=== PATIENT | male | born 1990 | race Caucasian/White ===

== ENCOUNTER 2020-08-16 15:43 | Outpatient (REF) | payer MEDICAID, SELFPAY ==
[2020-08-16 15:48] LABS: HCT 45.3 % (40.0-50.0); HGB 15.6 g/dL (13.5-17.5); MCH 32.6 pg (27.0-33.0); MCHC 34.4 % (32.0-36.0); MCV 94.6 fL (80-95); MPV 11.6 fL (8.0-11.0); Platelet Count 371 10^3/uL (130-400); RBC 4.79 10^6/uL (4.36-5.78); RDW 14.2 % (11.8-14.1); RDW-SD 49.9 fL; WBC 11.68 10^3/uL (4.4-10.8)
[2020-08-16 16:06] LABS: ALT 17 U/L (16-63); AST 18 U/L (15-37); Albumin 4.1 g/dL (3.4-5.0); Alkaline Phosphatase 76 U/L (46-116); Anion Gap 6.8 mmol/L (3-11); BUN 10 mg/dL (7-18); Bilirubin, Total 0.6 mg/dL (0.2-1.0); CO2 29.2 mmol/L (21.0-32.0); CREATININE 0.8 mg/dL (0.70-1.30); Calcium 9.2 mg/dL (8.5-10.1); Chloride 107 mmol/L (98-107); Glucose 92 mg/dL (74-106); Potassium 4.8 mmol/L (3.5-5.1); Sodium 143 mmol/L (136-145); TSH (W/Ref FT4) 1.89 uIU/mL (0.36-3.74); Total Protein 7.4 g/dL (6.4-8.2)
[2020-08-17 10:13] LABS: HIV-1/2 Ag & Ab Screen Negative (Negative)
[2020-08-17 10:24] LABS: Hepatitis C Ab w Rflx HCV PCR Negative (Negative)
[2020-08-18 02:51] LABS: Vitamin D 25 Total 26.7 ng/mL (30-100)
== END 2020-08-16 15:44 | disposition home or self-care (01) ==
LOC: NCHCN 15:43
PROVIDERS: Visit Provider Family Medicine
DX: R63.4 Abnormal weight loss (principal); Z79.899 Other long term (current) drug therapy; Z11.4 Encounter for screening for human immunodeficiency virus [HIV]; Z11.59 Encounter for screening for other viral diseases
CPT/HCPCS: 80053; 82306; 85027; 86803; 87389; 84443

== ENCOUNTER 2020-08-24 00:51 | Emergency (ER) | payer MEDICAID, SELFPAY ==
[2020-08-24 00:53] VITALS: BP 103/66; PULSE 86; RESP 16; TEMP 36.9; O2SAT 96
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
[2020-08-24] MEDS: LORazepam 1 MG TAB PO ×2 (01:37→12:11)
[2020-08-24 05:49] VITALS: BP 108/75; PULSE 79; RESP 14; TEMP 36.9; O2SAT 98
--- NOTE | 2020-08-24 06:07 | NUR.NOTE ---
Nursing Note:[facility] contacted and sts can pickle sorter patient and bring back to facility at 8am. pt in nad.
[2020-08-24] MEDS: LORazepam 0.5 MG TAB PO ×2 (07:53→11:35)
--- NOTE | 2020-08-24 12:12 | NUR.NOTE ---
pt was discharged and waiting for a ride to bring him to [facility]. the ride never showed up. the nurse from [facility] called to say that pt was suicidal yesterday while she was there and that the farm could not handle a suicidal pt. care mgmt and [facility]-Gerardo here here to try to figure out where pt will go. in the last hour-pt very anxious-wants something to calm him because he does not know where he will be going-given ativan-0.5mg and later ativan 1mg. Pt was yelling out that he needed medication.Nursing Note:
[2020-08-24] MEDS: Haloperidol 5 MG TAB PO ×2 (12:36→17:11)
--- NOTE | 2020-08-24 16:52 | CMPROGNOTE_ITS ---
- If Service Date Differs Date of service: 08/24/20 Time of Service: 16:52 Care Management Progress Note CM huddled with Asia and Gerardo of [facility], Nursing Welfare Investigator Kelly as well as multiple ED staff and Dr. Hurley. Upon CM's arrival, Asia reported the group was in agreement that Nigel met criteria to stay. Dr. Hurley stated, what other option do we have?, our hands are tied. JAME had previously spoken with all members of team multiple times throughout the day and was told by Gerardo that Nigel did not meet criteria as he was stable on his medications per his provider and did not have HI/SI. Gerardo reports this remains accurate at this time. Per reports from [facility] stated by OREN Brannon there are some questions central to his current med rec and if it is accurate at this time. Due to [facility]'s unwillingness to accept Nigel back, recommendations were made to start him on Zyprexa which Dr. Hurley was willing to do, as Nigel has voluntarily taken haldol (PO 5mg@1236) due to feeling anxious. Per reports, he is willing to go to inpatient psych, though this morning Gerardo re ported he didn't feel it would be helpful. Due to lack of SI/HI and presentation of chronic issues, no safety plan or CPSO will be required at this time, recommendation stands for Nigel to remain in the Emergency Room as he does not meet criteria for Inpatient psychiatric stabilization and his history of reported behaviors and TBI put him at his risk for impulsivity; better managed from the Emergency Room. Amna report placement at [facility] will be sought. - MH Services (Omit if N/A) Current MH Services: Other (TBI-chronic) - Status Status: Interim (Does not meet criteria.) - Reason for Wait Reason for Wait: Assessment/Screening, Outpatient Resources, Other (lack of communication, no disposition as TBI housing refused to take him back. )
[2020-08-24] MEDS: LORazepam 1 MG TAB 2 MG PO (17:11)
[2020-08-24 17:45] LABS: Source Nasal/Nares
[2020-08-24 17:52] VITALS: BP 106/65; PULSE 98; RESP 15; TEMP 36.8; O2SAT 94
[2020-08-24 17:58] LABS: Abs Immature Grans 0.06 10^3/uL (0.0-0.06); Absolute Eosinophil Count 0.49 10^3/uL (0.0-0.7); Absolute Lymphocyte Count 4.91 10^3/uL (1.2-3.4); Absolute Monocyte Count 1.49 10^3/uL (0.1-0.8); Basophils % 1.1; HCT 45.7 % (40.0-50.0); HGB 15.5 g/dL (13.5-17.5); Immature Grans % 0.5; Lymphocytes % 40.2; MCH 32.2 pg (27.0-33.0); MCHC 33.9 % (32.0-36.0); MPV 10.7 fL (8.0-11.0); Monocytes % 12.2; Nucleated RBC 0 %; Platelet Count 370 10^3/uL (130-400); RBC 4.81 10^6/uL (4.36-5.78); RDW 14.2 % (11.8-14.1); RDW-SD 50.4 fL; WBC 12.21 10^3/uL (4.4-10.8)
[2020-08-24 18:00] LABS: ALT 19 U/L (16-63); AST 17 U/L (15-37); Albumin 3.8 g/dL (3.4-5.0); Alkaline Phosphatase 72 U/L (46-116); Anion Gap 7.9 mmol/L (3-11); BUN 10 mg/dL (7-18); Bilirubin, Total 0.7 mg/dL (0.2-1.0); CO2 29.1 mmol/L (21.0-32.0); CREATININE 0.9 mg/dL (0.70-1.30); Calcium 8.9 mg/dL (8.5-10.1); Chloride 106 mmol/L (98-107); ETHANOL BLOOD 4.1 mg/dL (<3); Glucose 87 mg/dL (74-106); Potassium 4.3 mmol/L (3.5-5.1); Sodium 143 mmol/L (136-145); Total Protein 7.4 g/dL (6.4-8.2)
[2020-08-24 18:13] LABS: Absolute Basophil Count 0.13 10^3/uL (0.0-0.2); Absolute Neutrophil Count 5.13 10^3/uL (1.2-6.7)
[2020-08-24] MEDS: Divalproex Sodium 500 MG TAB.ER.24H 1000 MG PO (18:16)
[2020-08-24] MEDS: OLANZapine 5 MG TAB PO (18:16)
[2020-08-24 18:19] LABS: Diff Comment Diff Reviewed; RBC Morphology Normal
[2020-08-24 18:30] LABS: *AMPHETAMINES SCREEN URINE Negative (Negative); *BARBITURATES SCREEN URINE Negative (Negative); *BENZODIAZEPINES SCREEN URINE Negative (Negative); Cannabinoids THC Positive (Negative); Cocaine Screen,Urine Negative (Negative); METHADONE URINE SCREEN Negative (Negative); OPIATES URINE SCREEN Negative (Negative); Tricyclic Antidepressants Negative (Negative)
[2020-08-24 20:53] LABS: COVID-19 PCR Negative (Negative)
[2020-08-25] MEDS: OLANZapine 5 MG TAB PO ×3 (08:35→21:18)
[2020-08-25] MEDS: Divalproex Sodium 500 MG TAB.ER.24H 1000 MG PO (08:35)
--- NOTE | 2020-08-25 08:55 | PDOC.MHCN_ITS ---
Date of service: 08/24/20 Time of Service: 10:30 Mental Health Crisis Note Presenting Issue How did you arrive at the ED and why did you come: Client presented to [facility] ER via ambulance from [facility]. As reported by Pema ([facility] healthcare administrator); client was dysregulated, impulsive and made threats to staff. Client became a resident at [facility] yesterday because he has a severe TBI. Precipitating Factors Client denied SI/HI at this time Disposition BEHAVIOR: Client presented as anxious with periods of irritable and hyperactive behavior especially when he appeared overwhelmed with information or unable to recall information. Client was able to calm himself down with the help of his therapy dog. EYE CONTACT: Client maintained minimal eye contact MOOD: Client presented with dysphoric mood and at times, agitated mood. AFFECT: Client presented with labile affect APPETITE: Client reported he had no appetite for food. SLEEP(trouble falling/staying asleep: Client reported difficulty falling and/or staying asleep especially when he is alone or isolated. Plan Client is on voluntary status and will await placement at [facility] for in-patient treatment for med adjustment and med regulation. Client will need to be reassessed if and when he decides to be discharged before getting placed. Alternatives to hospitalization were not explored at this time based on client's needs and p Signature Clinician's Name/Title: Rebeca Shepherd / KEVIN clinician
--- NOTE | 2020-08-25 08:55 | PDOC.CMSAFED ---
- If Service Date Differs Date of service: 08/25/20 Time of Service: 08:55 Care Management Safety Plan Status: Voluntary - Reason for Wait Reason for Wait: Inpatient Admission Chief Complaint: Nigel presented in the ED yesterday due to anxiety and adjustment disorder. He recently moved to [facility], but was only there for approximately 24 hours before being sent to the ED for mood dysregulation. Nigel, who has a TBI, is described as impulsive and anxious. Today, Nigel denies suicidal or homicidal ideation, intent or plan. He is slightly agitated when CM comes to meet with him but he is able to regain his composure after a few minutes. CM will continue to follow. VOLUNTARY FOR INPATIENT PSYCHIATRIC STABILIZATION. Patient is appropriate in all interactions since arriving at [facility]; Pt has demonstrated appropriate coping and communication skills, has articulated his or her needs and concerns and is fully engaged during staff interactions. Safety plan has been established with patient, and care team, to adhere to patient goals, identify restrictions based on behavioral status, address nutrition, and determine allowed personal belongings, tools for hygiene and personal care. Determine level of activity including ambulation, level of supervision, visitors, and determine privileges based on behaviors and level of engagement by pt. Referrals have been sent to [facility], [facility], and [facility] for review. Nigel has a certified therapy dog (see documentation) with him. He is allowed to take the dog out for walks accompanied by staff. SAFETY PLAN: 1. Will remain on suicide precautions. In Paper Clothes 2. Will remain in room under direct supervision of one-on-one staff at all times provided by CPSO, BASEBOARD HEATING INSTALLER, CORRESPONDENCE SCHOOL INSTRUCTOR senior electrical project manager. 3. May have paper cups, plates, finger foods as well as a cardboard spoon with which to eat meals. 4. Follow [facility] Management of the Admitted Behavioral Health Patient policy. 5. Comfort bath system only. 6. No personal belongings 7. Visitors-No visitors at this time 8. Activities: Coloring books, crayons, music tablet, and other activities at RN discretion. 9. Bathroom privileges with escort in the ED. 10. Phone: May use hospital phone for incoming and outgoing phone calls at RN discretion. 11. Due to VOLUNTARY status, if patient wishes to leave [facility], staff will contact [facility] Crisis Screener ([phone]) and On-Call Structural Engineering Technician ([phone]) as soon as possible. In the event of elopement, notify [facility] Police ([phone]). Patient is currently voluntarily at [facility] and seeking inpatient admission when a bed becomes available. [facility] Frontline Follow Up Specialist will continue seeking placement. Please contact the Factory Lay Out Engineer Structural Engineering Technician ([phone]) and [facility] Follow Up Specialist ([phone]) for any needed changes in the Safety Plan. Safety plan has been provided to interdepartmental care team.
--- NOTE | 2020-08-25 09:10 | PDOC.MHCN_ITS ---
Date of service: 08/25/20 Time of Service: 09:11 Mental Health Crisis Note Presenting Issue How did you arrive at the ED and why did you come: Pt arrived on 08.24.2020 from his current residence, [facility] in [facility]. Precipitating Factors Pt is yelling at one point stating that he is going to leave and go live under a bridge and drink himself to . This was while he was speaking to his mother. No signs of delusions however, his memory is impaired by his TBI. Disposition BEHAVIOR: When the Pt is anxious he becomes impulsive, fearful and untrusting of anything and anyone. He is able to gain control with the use of his service dog and people being patient with him. He is taking medications as prescribed once he is able to gain control again. He is fond of his service dog and this is a good place to start with communications. EYE CONTACT: Good MOOD: As described above. AFFECT: Angry when heightened anxiety and then normal when he is calm. APPETITE: Pt is not hungry this morning however, did eat last night. SLEEP(trouble falling/staying asleep: Nursing reported he slept through the night. Plan [facility] will continue to seek placement for Pt. It was reported yesterday that if the Pt is able to regulate and is taking his medications that [facility] will accept him back without hospital placement. Until such time [facility] will continue daily evaluations to monitor him and seek placement. Signature Clinician's Name/Title: Asia Hurt MS, [facility] Emergency Services Clinician, [facility]
[2020-08-25] MEDS: LORazepam 1 MG TAB 2 MG PO (09:18)
--- NOTE | 2020-08-25 09:25 | NUR.NOTE ---
6210--Nigel asked for medication to calm his nerves. I feel tense and shakey inside--Dr Pineda notified. Duran ordered which Nigel took willingly.Nursing Note:
[2020-08-25] MEDS: diazePAM 5 MG TAB (13:49)
--- NOTE | 2020-08-25 14:28 | NUR.NOTE ---
Nursing Note: Spoke with patient and I put the therapy dog certificate, photo ID of the therapy dog and his photo copy of his insurance card in a manilla envelope in his bag of belongings. Margaret Sutherland
--- NOTE | 2020-08-25 14:32 | NUR.NOTE ---
Nursing Note: [facility] called @ [phone]. Carlie stated that the patient was still too acute for them to take. Margaret Sutherland
[2020-08-25] MEDS: diazePAM 5 MG TAB PO (17:13)
[2020-08-25 17:53] VITALS: BP 119/65; PULSE 89; RESP 18; TEMP 37; O2SAT 95
--- NOTE | 2020-08-26 04:23 | NUR.NOTE ---
This FIXTURE MAKER offered PT to take dog out to use bathroom at 0415 on August 26, 2020. PT refused at this time and said, She will be fine until after breakfast. Let PT know that if he felt like he needed to take her outside before that, to just let this FIXTURE MAKER know. PT appropriate and pleasant at this time. Nursing Note:
[2020-08-26] MEDS: OLANZapine 5 MG TAB PO ×4 (06:22→22:37)
[2020-08-26 07:14] VITALS: BP 118/80; PULSE 86; RESP 16; TEMP 36.6; O2SAT 97
[2020-08-26] MEDS: LORazepam 1 MG TAB PO ×2 (07:58→09:40)
[2020-08-26] MEDS: Divalproex Sodium 500 MG TAB.ER.24H 1000 MG PO (08:29)
[2020-08-26] MEDS: Haloperidol 5 MG/ML VIAL IM (10:23)
[2020-08-26] MEDS: diphenhydrAMINE 50 MG/ML VIAL IM (10:23)
--- NOTE | 2020-08-26 10:47 | NUR.NOTE ---
1047 Approximately 1020 patient was told by Care Management that he may go to [facility] for treatment, patient became verbally aggressive yelling stating I want to go out and smoke a cigarette and walk my dog. Yelling at Dr. Muñoz you are a privileged white man, you are oppressive. Patient stating I am leaving, Aurelio Luis called. Patient yelling in Dr. Muñoz's face You want to inseminate everyone, you love your government. Patient escorted back to room 9 and asking Can I have some medication to help me calm down and go to sleep? Patient medicated with Benadryl and Haldol as ordered.
--- NOTE | 2020-08-26 11:55 | PDOC.MHCN ---
Date of service: 08/24/20 Time of Service: 01:27 Mental Health Crisis Note Presenting Issue How did you arrive at the ED and why did you come: Patient arrived at the er due to sucidal thoughts about living alone at [facility]. Precipitating Factors Client stated that he would rather be than live alone at [facility] Client shared that he has not been able to transfer his medical marijuana card from [place] to [place] and his is struggling without it. Client shared that his only coping skill is marijuana , client shared that if he could just take some medication to calm down then he could go back to [facility]. ER doctor shared that he would give client Ativan to help and could send him with enough for a week to help with the transition, until his medications have been changed over. Disposition BEHAVIOR: cooperative EYE CONTACT: good MOOD: calm AFFECT: flat APPETITE: poor SLEEP(trouble falling/staying asleep: not great sleeps from 12 am to 3 am. Plan Client will receive Ativan to help calm him and return to [facility]. [facility] will look into a follow up appointment with med provider to inquire about his medical marijuana card being transferred to [place] Signature Clinician's Name/Title: Russell SUAREZ
[2020-08-26] MEDS: LORazepam 2 MG/ML VIAL IM (13:05)
--- NOTE | 2020-08-26 13:59 | PDOC.CMSAFED ---
- If Service Date Differs Date of service: 08/26/20 Time of Service: 13:59 Care Management Safety Plan Status: Voluntary Reason for Wait: Inpatient Admission Chief Complaint: Nigel presented in the ED due to anxiety and adjustment disorder. He recently moved to [facility], but was only there for approximately 24 hours before being sent to the ED for mood dysregulation. Nigel, who has a TBI, is described as impulsive and anxious. Today, Nigel denies suicidal or homicidal ideation, intent or plan. He is slightly agitated when CM comes to meet with him but he is able to regain his composure after a few minutes. CM will continue to follow. VOLUNTARY FOR INPATIENT PSYCHIATRIC STABILIZATION. Patient is appropriate in all interactions since arriving at [facility]; Pt has demonstrated appropriate coping and communication skills, has articulated his or her needs and concerns and is fully engaged during staff interactions. Safety plan has been established with patient, and care team, to adhere to patient goals, identify restrictions based on behavioral status, address nutrition, and determine allowed personal belongings, tools for hygiene and personal care. Determine level of activity including ambulation, level of supervision, visitors, and determine privileges based on behaviors and level of engagement by pt. Referrals have been sent to [facility], [facility], and [facility] for review. SAFETY PLAN: Nigel has a certified therapy dog (see documentation) with him. He is allowed to take the dog out for walks 4 times a day accompanied by CPSO and a board stacker. Nigel will also be allowed to smoke a cigarette when he walks the dog. This plan was made after discussion with and approval of Senior Administration. 1. Will remain on suicide precautions. In Paper Clothes 2. Will remain in room under direct supervision of one-on-one staff at all times provided by CPSO, WOVEN WOOD SHADE ASSEMBLER, SECURITY BUSINESS ANALYST de ionizer operator. Exception: see above. 3. May have paper cups, plates, finger foods as well as a cardboard spoon with which to eat meals. 4. Follow [facility] Management of the Admitted Behavioral Health Patient policy. 5. Comfort bath system only. 6. No personal belongings 7. Visitors-No visitors at this time 8. Activities: Coloring books, crayons, music tablet, and other activities at RN discretion. 9. Bathroom privileges with escort in the ED. 10. Phone: May use hospital phone for incoming and outgoing phone calls at RN discretion. 11. Due to VOLUNTARY status, if patient wishes to leave [facility], staff will contact [facility] Crisis Screener ([phone]) and On-Call Information Broker ([phone]) as soon as possible. In the event of elopement, notify [facility] Police ([phone]). If the patient becomes involuntary, he will no longer be allowed to leave the building to walk the dog or smoke until a new plan is created and the issue is revisited. Patient is currently voluntarily at [facility] and seeking inpatient admission when a bed becomes available. [facility] Frontline Retail Operations Specialist will continue seeking placement. Please contact the Spinner Continuous Information Broker ([phone]) and [facility] Retail Operations Specialist ([phone]) for any needed changes in the Safety Plan. Safety plan has been provided to interdepartmental care team. cc:
--- NOTE | 2020-08-26 16:28 | CMSP_ITS ---
- If Service Date Differs Date of service: 08/26/20 Time of Service: 16:28 Care Management Safety Plan Status: Involuntary - Reason for Wait Reason for Wait: Inpatient Admission INVOLUNTARY FOR INPATIENT PSYCHIATRIC STABILIZATION. A huddle is done at approximately 4:15 pm with the treatment team consisting of Dr. Garibay, ED provider, Snow, nursing cutting room supervisor, LARISA Kruse, hospital security, and JAME Turk. Safety plan has been established to meet the needs of the patient, and consideration of the care team, to adhere to patient goals, identify restrictions based on behavioral status, address nutrition, and determine allowed personal belongings, tools for hygiene and personal care. Determine level of activity including ambulation, level of supervision, visitors, and determine privileges based on behaviors and level of engagement by pt. SAFETY PLAN: Nigel has a certified therapy dog (see documentation) with him. He is allowed to take the dog out for walks 4 times a day accompanied by [employer] and [facility] security. Nigel will also be allowed to smoke a cigarette when he walks the dog. 1. Will remain on SI/HI precautions. In Paper Clothes 2. Will remain in room under direct supervision of one-on-one staff at all times provided by [employer], NILES, MANAGER SERVICES tour actor. 3. May have paper cups, plates, finger foods as well as a cardboard spoon with which to eat meals. 4. Follow [facility] Management of the Admitted Behavioral Health Patient policy. 5. Comfort bath system only. 6. No personal belongings 7. Visitors: No visitors at this time. 8. Activities: Coloring books, crayons, music tablet, and other activities at RN discretion. 9. Bathroom privileges with escort in the ED. 10. Phone: May use hospital phone for incoming and outgoing phone calls at RN discretion. 11. Due to INVOLUNTARY status, patient is being held at [facility] by the Department of Mental Health ([facility]) until 2nd certification by [facility] Psychiatrist can be performed (within 24 hours). Staff will provide de-escalation support (CPI) as needed. If patient wishes to leave [facility], staff will contact [facility] Crisis Screener ([phone]) and On-Call Law Librarian ([phone]) as soon as possible. In the event of elopement, notify [facility] Police ([phone]). Patient is currently involuntarily at [facility]. [facility] Frontline Rod Welder will continue seeking placement. Please contact the Satellite Dish Repairer Law Librarian ([phone]) for any needed changes to Safety Plan. Safety plan has been provided to interdepartmental care team. Patient will be transported by music internship at time of discharge.
--- NOTE | 2020-08-26 16:36 | PDOC.MHCN_ITS ---
Date of service: 08/26/20 Time of Service: 16:36 Mental Health Crisis Note Presenting Issue How did you arrive at the ED and why did you come: Pt arrived on 08.24.2020 for assessment and placement due to out of control behaviors per his current placement [email or web address]. Precipitating Factors Pt has been making statements of wanting to leave to kill himself and although no delusions have been seen his TBI has impacted his ability to be rational and agree consistently with a voluntary placement. Disposition BEHAVIOR: Pt's behavior has been erratic, labile and tangential thoughts. EYE CONTACT: Fair MOOD: Tangential AFFECT: Angry or flat APPETITE: fair is sharing half his food with his dog per nurses report. SLEEP(trouble falling/staying asleep: Sleep has been fine. Plan Pt was placed on an EE per the treatment teams agreement. All documents have been sent to [facility] well as [facility], [facility] and [facility]. [facility] and [facility] do not have beds. Signature Clinician's Name/Title: Asia Hurt MS, [facility] Emergency Services Clinician, [facility]
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
[2020-08-26] MEDS: diazePAM 10 MG/2 ML SYR IM (20:42)
--- NOTE | 2020-08-26 22:23 | PDOC.MHCN ---
Date of service: 08/26/20 Time of Service: 19:30 Mental Health Crisis Note Presenting Issue How did you arrive at the ED and why did you come: Client presented to [facility] ED 08.24.20 and was assessed [address] [facility] clinician with plan for voluntary in-patient placement. An EE was written by [facility] clinician 08.26.20 and was reviewed tonight by [facility] psychiatrist Dr. Duglas Salvador Precipitating Factors Refer to documentation 08.24.20 - 08.26.20 Disposition BEHAVIOR: Did not assess EYE CONTACT: Did not assess MOOD: Did not assess AFFECT: Did not assess APPETITE: Did not asess SLEEP(trouble falling/staying asleep: Did not assess Plan This narrative writer was present for 2nd certification process. Dr Duglas Salvador, [facility], determined that the client did not meet criteria for involuntary treatment at this time. The following issues were cited: - No description of psychiatric disorders within documentation as written demonstrating presenting psychiatric illness that can be differentiated from relevant timeline before and after traumatic brain injury occurrence. - Lack of evidence contained within the documentation as written that supports history of mental illness specific to the concerns of ongoing imminent suicidality. - Disposition remains voluntary. Episodic memory deficits relating to concent of treatment indicate lack of capacity argument that is not differentiated from TBI indicators. [facility] narrative [facility]. Client declined due to service animal maintenance issues and ongoing capacity limitations. A new referral may be submitted Saturday08.29.20 per financial foundations representative of .
[2020-08-27] MEDS: OLANZapine 5 MG TAB PO (07:37)
[2020-08-27] MEDS: diazePAM 5 MG TAB PO ×2 (07:37→15:30)
[2020-08-27] MEDS: Divalproex Sodium 500 MG TAB.ER.24H 1000 MG PO (08:19)
[2020-08-27 09:24] VITALS: BP 111/65; PULSE 106; RESP 18; O2SAT 97
[2020-08-27] MEDS: LORazepam 1 MG TAB PO (10:09)
--- NOTE | 2020-08-27 12:25 | CMSP_ITS ---
- If Service Date Differs Date of service: 08/27/20 Time of Service: 12:25 Care Management Safety Plan Status: Involuntary - Reason for Wait Reason for Wait: Inpatient Admission INVOLUNTARY FOR INPATIENT PSYCHIATRIC STABILIZATION. CM spoke with [facility] Asia, after she met with ED staff, she reports consensus is for safety plan to remain the same at this time with no changes identified. Safety plan has been established to meet the needs of the patient, and consideration of the care team, to adhere to patient goals, identify restrictions based on behavioral status, address nutrition, and determine allowed personal belongings, tools for hygiene and personal care. Determine level of activity including ambulation, level of supervision, visitors, and determine privileges based on behaviors and level of engagement by pt. SAFETY PLAN: Nigel has a certified therapy dog (see documentation) with him. He is allowed to take the dog out for walks 4 times a day accompanied by [employer] and hospital security. Nigel will also be allowed to smoke a cigarette when he walks the dog. 1. Will remain on SI/HI precautions. In Paper Clothes 2. Will remain in room under direct supervision of one-on-one staff at all times provided by [employer], [place], PLATFORM OPERATIONS DIRECTOR public works manager. 3. May have paper cups, plates, finger foods as well as a cardboard spoon with which to eat meals. 4. Follow [facility] Management of the Admitted Behavioral Health Patient policy. 5. Comfort bath system only. 6. No personal belongings 7. Visitors: No visitors at this time. 8. Activities: Coloring books, crayons, music tablet, and other activities at RN discretion. 9. Bathroom privileges with escort in the ED. 10. Phone: May use hospital phone for incoming and outgoing phone calls at RN discretion. 11. Due to INVOLUNTARY status, patient is being held at [facility] by the Department of Mental Health ([facility]) until 2nd certification by [facility] Psychiatrist can be performed (within 24 hours). Staff will provide de-escalation support (CPI) as needed. If patient wishes to leave [facility], staff will contact [facility] Crisis Screener ([phone]) and On-Call Chinese Language Professor ([phone]) as soon as possible. In the event of elopement, notify [facility] Police ([phone]). Patient is currently involuntarily at [facility]. [facility] Frontline Dynamiter will continue seeking placement. Please contact the Sugar Grinder Chinese Language Professor ([phone]) for any needed changes to Safety Plan. Safety plan has been provided to interdepartmental care team. Patient will be transported by deputy sheriff bailiff at time of discharge.
--- NOTE | 2020-08-27 13:17 | PDOC.MHCN_ITS ---
Date of service: 08/27/20 Time of Service: 13:18 Mental Health Crisis Note Presenting Issue How did you arrive at the ED and why did you come: Pt arrived on 08.24.2020 from his residential living arrangement [facility] after he behave in an uncontrolled manner all night. They did not feel safe. Precipitating Factors PT denied SI and HI. He is not showing signs of delusions however, he forgets things often due to a TBI. Disposition BEHAVIOR: PT's behaviour continues to labile and thoughts tangential. He can become verbally aggressive when his anxiety is heightened which he was this morning when he believed that EEF was stealing his money by not allowing him to return calling them and ER staff as well as this staff jordan mcadamsist. Once he had a few minutes alone he was able to call this clinician back and apologize. EYE CONTACT: Eye contact is fair. MOOD: Mood is labile moment to moment. AFFECT: Affect is flat most the time but he was able to feel more secure once he learned that this clinician knew his cousin and her grandmother. He noted that we were able to connect at that time. APPETITE: Pt reported that he is accustomed to only eating one meal a day. SLEEP(trouble falling/staying asleep: Pt is sleeping well. Plan Pt will continue to be assessed daily by [facility] and placement sought. He will remain in the ER until placement is sought and/or he is safely able to safety plan to go back to his home. ER provider, Dr. Hurley will increase his Zyprexa to 10mg BID in hopes to not have to use the added emergency medications as much. This was per a discussion earlier in the week with Pt's PMHNP. Signature Clinician's Name/Title: Asia Hurt MS, [facility] Emergency Services Clinician, [facility]
[2020-08-27] MEDS: OLANZapine 10 MG TAB PO (19:46)
[2020-08-27] MEDS: diazePAM 5 MG TAB 10 MG PO (22:05)
[2020-08-27] MEDS: diphenhydrAMINE 25 MG CAP PO (22:05)
[2020-08-28] MEDS: OLANZapine 10 MG TAB PO ×2 (08:29→19:33)
[2020-08-28] MEDS: Divalproex Sodium 500 MG TAB.ER.24H 1000 MG PO (08:29)
[2020-08-28] MEDS: diazePAM 5 MG TAB PO ×3 (08:39→19:33)
[2020-08-28] MEDS: LORazepam 1 MG TAB PO ×2 (11:04→19:23)
--- NOTE | 2020-08-28 12:28 | PDOC.MHCN ---
Date of service: 08/28/20 Time of Service: 12:28 Mental Health Crisis Note Presenting Issue How did you arrive at the ED and why did you come: Pt arrived on 08.24.2020 via [facility] for assessment and stabilization. Precipitating Factors Pt denied SI and HI. His thoughts are not clear and it appears he could be struggling form some delusions but again not sure if this is reacted to his TBI. Disposition BEHAVIOR: Pt is described as being manipulative and seeking velum for his anger. ER staff are getting frustrated. He was pleasant during our discussion even when discussing EEF that he got really agitated from on 08.27.2020. EYE CONTACT: Good MOOD: calm. He reported he is terrible on the inside but and like a butterfly on the outside. AFFECT: smiling and happy APPETITE: Pt only likes to eat one meal a day. It is what he is accustomed to. SLEEP(trouble falling/staying asleep: Pt reported he slept well. Plan Pt will remain at [facility] pending admission or ability to stabilize on his medications and able to safety plan back to [facility]. Until then he will be assessed daily by [facility]. Signature Clinician's Name/Title: Asia Hurt MS, [facility] Emergency Services Clinician, [facility]
[2020-08-28] MEDS: diphenhydrAMINE 25 MG CAP (13:19)
[2020-08-28 17:18] VITALS: BP 123/75; PULSE 87; RESP 16; TEMP 37; O2SAT 96
[2020-08-28] MEDS: QUEtiapine 25 MG TAB 50 MG PO (22:27)
[2020-08-29] MEDS: Divalproex Sodium 500 MG TAB.ER.24H 1000 MG PO (08:30)
[2020-08-29] MEDS: QUEtiapine 25 MG TAB 50 MG PO ×3 (08:30→20:00)
[2020-08-29] MEDS: OLANZapine 10 MG TAB PO ×2 (08:30→20:00)
--- NOTE | 2020-08-29 10:12 | NUR.NOTE ---
Mental health with PTNursing Note:
--- NOTE | 2020-08-29 10:42 | NUR.NOTE ---
Mental health left room at 1035Nursing Note:
--- NOTE | 2020-08-29 12:36 | NUR.NOTE ---
PT yelling at this time asking for more meds. When RN told me the PT wasn't due for anything until 2 PM. PT is saying, I wish people could see how hurt I am inside and you would all rather see me slit my fuing wrists and let my blood squirt all over you guys. Nursing Note:
--- NOTE | 2020-08-29 13:03 | NUR.NOTE ---
PT brought outside as he is allowed to go out 4 times a day per care plan. PT was very agitated. RN went and got Radio Communications Mechanician and we escorted him and dog outside. On our way back in, PT started coughing. Once back in the building, PT stopped at bathroom and vomited. RN and MD aware. Nursing Note:
--- NOTE | 2020-08-29 13:05 | CMSP_ITS ---
- If Service Date Differs Date of service: 08/29/20 Time of Service: 13:05 Care Management Safety Plan Status: Voluntary - Reason for Wait Reason for Wait: Inpatient Admission VOLUNTARY FOR INPATIENT PSYCHIATRIC STABILIZATION. Patient is appropriate in all interactions since arriving at [facility]; Pt has demonstrated appropriate coping and communication skills, has articulated his or her needs and concerns and is fully engaged during staff interactions. A huddle is done at approximately 10:[address] Muñoz, ED provider, Snow, nursing transportation supervisor, LARISA Brown, Ricardo [facility], and JAME Turk. Safety plan has been established with patient, and care team, to adhere to patient goals, identify restrictions based on behavioral status, address nutrition, and determine allowed personal belongings, tools for hygiene and personal care. Determine level of activity including ambulation, level of supervision, visitors, and determine privileges based on behaviors and level of engagement by pt. Referrals have been sent to [facility], [facility], and [facility] for review. [facility] has already declined patient. SAFETY PLAN: Nigel has a certified therapy dog (see documentation) with him. He is allowed to take the dog out for walks 4 times a day [facility] and [facility] security. Nigel will also be allowed to smoke a cigarette when he walks the dog. This plan was made after discussion with and approval of Senior Administration. 1. Will remain on suicide precautions. In Paper Clothes 2. Will remain in room under direct supervision of one-on-one staff at all times provided by CPSO, NILES, PRECISION FARMING COORDINATOR supervisor cigar making machine. Exception: see above. 3. May have paper cups, plates, finger foods as well as a cardboard spoon with which to eat meals. 4. Follow [facility] Management of the Admitted Behavioral Health Patient policy. 5. Comfort bath system only. 6. No personal belongings 7. Visitors-No visitors at this time 8. Activities: Coloring books, crayons, music tablet, and other activities at RN discretion. 9. Bathroom privileges with escort in the ED. 10. Phone: May use hospital phone for incoming and outgoing phone calls at LARISA carreon. 11. Due to VOLUNTARY status, if patient wishes to leave [facility], staff will contact [facility] Crisis Screener ([phone]) and On-Call Heavy Equipment Field Mechanic ([phone]) as soon as possible. In the event of elopement, notify [facility] Police ([phone]). Patient is currently voluntarily at [facility] and seeking inpatient admission when a bed becomes available. [facility] Frontline Coordinator Of Genetic Services will continue seeking placement. Please contact the Journalism Instructor Heavy Equipment Field Mechanic ([phone]) and [facility] Coordinator Of Genetic Services ([phone]) for any needed changes in the Safety Plan. Safety plan has been provided to interdepartmental care team.
--- NOTE | 2020-08-29 13:05 | PDOC.CMSAFED ---
- If Service Date Differs Date of service: 08/29/20 Time of Service: 13:05 Care Management Safety Plan Status: Voluntary - Reason for Wait Reason for Wait: Inpatient Admission VOLUNTARY FOR INPATIENT PSYCHIATRIC STABILIZATION. Patient is appropriate in all interactions since arriving at [facility]; Pt has demonstrated appropriate coping and communication skills, has articulated his or her needs and concerns and is fully engaged during staff interactions. A huddle is done at approximately 10:[address] Muñoz, ED provider, Snow, nursing finishing supervisor, LARISA Brown, Ricardo [facility], and JAME Turk. Safety plan has been established with patient, and care team, to adhere to patient goals, identify restrictions based on behavioral status, address nutrition, and determine allowed personal belongings, tools for hygiene and personal care. Determine level of activity including ambulation, level of supervision, visitors, and determine privileges based on behaviors and level of engagement by pt. Referrals have been sent to [facility], [facility], and [facility] for review. [facility] has already declined patient. SAFETY PLAN: Nigel has a certified therapy dog (see documentation) with him. He is allowed to take the dog out for walks 4 times a day accompanied by [facility] and hospital security. Nigel will also be allowed to smoke a cigarette when he walks the dog. This plan was made after discussion with and approval of Senior Administration. 1. Will remain on suicide precautions. In Paper Clothes 2. Will remain in room under direct supervision of one-on-one staff at all times provided by [employer]PS[employer], FISHER PURSE SEINE, BEER MAKER tree shear operator. Exception: see above. 3. May have paper cups, plates, finger foods as well as a cardboard spoon with which to eat meals. 4. Follow [facility] Management of the Admitted Behavioral Health Patient policy. 5. Comfort bath system only. 6. No personal belongings 7. Visitors-No visitors at this time 8. Activities: Coloring books, crayons, music tablet, and other activities at RN discretion. 9. Bathroom privileges with escort in the ED. 10. Phone: May use hospital phone for incoming and outgoing phone calls at RN discretion. 11. Due to VOLUNTARY status, if patient wishes to leave [facility], staff will contact [facility] Crisis Screener ([phone]) and On-Call Fiber Machine Tender ([phone]) as soon as possible. In the event of elopement, notify [facility] Police ([phone]). Patient is currently voluntarily at [facility] and seeking inpatient admission when a bed becomes available. [facility] Frontline Microbiology Teacher will continue seeking placement. Please contact the Mold Tooler Fiber Machine Tender ([phone]) and [facility] Microbiology Teacher ([phone]) for any needed changes in the Safety Plan. Safety plan has been provided to interdepartmental care team.
--- NOTE | 2020-08-29 15:08 | PDOC.MHCN ---
Date of service: 08/29/20 Time of Service: 10:00 Mental Health Crisis Note Presenting Issue How did you arrive at the ED and why did you come: The client presented to [facility] ED via ambulance from [facility] under voluntary status with chief concerns of dysregulation, impulsivity, and threats toward self and residential staff. He has been awaiting voluntary in-patient placement since 08.24.20. Precipitating Factors The client presented lying down with arms crossed on hospital bed. Appearance was mildly disheveled and otherwise unremarkable. Client declined to answer orientation questions and stated that It doesn't matter. Short-term memory deficits noted as client reported that he was not able to fully recall events occurring between 08.24.20 and today. No reported sleep or appetite concerns. Focus and attention appeared intact and client was responsive to verbal prompts. He presented with emotional lability with some dysphoric reluctance to engage and heightened agitation that gradually subsided towards conclusion of assessment process. Client was observed to speak relatively calmly and would raise his voice while making continual reference to ongoing frustration at being caught in what he described as the system of mental health without getting my needs met. Client exhibited mild tangentially when discussing treatment and placement process and would speak about various persecutory beliefs he harbored in relation to the system. He fixated on medication throughout assessment process and stated that Now they have me on a bunch of crazy pharmaceuticals. None of it really works and I would like access to my marijuana - this has helped me more than anything. Client reported that he is appreciative for being allowed outside to walk his service animal 4 times per day and stated that If it weren't for Pooka I'd be . She's been OK here but she really needs more space. No presenting evidence of hallucinations, however client reported that has experienced hearing voices in the past, described as internally generated, while under the influence of alcohol and/or other substances. He advised that the voices didn't say anything in particular and did not instruct him in any way. He reported experiencing intermittent visual hallucinations / visual field disturbances, described as Fractal shapes, that he stated are relieved when smoking THC. He did not endorse SI/HI/SIB, intent or plan at time of assessment but reported that he experiences fleeting thoughts of self-harm when feeling frustrated or stressed. He wished to have it documented that I've never had thoughts of harming anyone else and I will never harm anyone else. He reported willingness to proceed on in-patient placement and stated that I'll do whatever it takes. I mainly just want to go back to [facility] and talk with my family again. He declined to answer additional assessment tool questions (PHQ-9, CAGE-AID, PC-PTSD-5, CSSRS) and stated I've already answered all those questions. You have the answers. Disposition BEHAVIOR: Cooperative and responsive to some questions but not all. Behaviorally appropriate. EYE CONTACT: Good MOOD: Emotional lability of mood; dysphoria w/ agitation AFFECT: See above APPETITE: No reported issues SLEEP(trouble falling/staying asleep: No reported issues Plan Client disposition remains voluntary and will be referred for in-patient placement accordingly. Per Dr. Muñoz, discharge back to [facility] is being ruled out at this time as it is reported that the client needs additional evaluation and medication adjustment in an appropriate controlled setting. Updated referral form and available labs faxed to: [facility], [facility]. Status update for additional referral options: [facility] - Not accepting referrals at this time. [facility] [place] Not accepting referrals at this time. [facility] - Not accepting referrals at this time due to capacity and waitlist (12 or more) Client will be reassessed daily until placement is secured or his suitability to discharge back to [facility] can be determined pending additional observation. If the client becomes threatening towards himself or others or attempts to discharge he will need to be assessed by a [facility]. Signature Clinician's Name/Title: Robin Martinez [facility] clinician / [facility]
--- NOTE | 2020-08-30 07:49 | NUR.NOTE ---
Nursing Note: Patient requested to use the Front Flip tablet that he has been using the last couple of days. I asked what he was using it for and he stated audiobooks, messenger and internet to look up answers to questions. I went over the care plan recommendations of it's use for Karan specifically. He made an agreement with me that he would use it for [place] and [employer] to download books that he would listen to and only those 2 things. Margaret Sutherland
[2020-08-30] MEDS: LORazepam 1 MG TAB PO ×2 (08:30→15:59)
[2020-08-30] MEDS: QUEtiapine 25 MG TAB 50 MG PO ×3 (08:37→20:27)
[2020-08-30] MEDS: OLANZapine 10 MG TAB PO ×2 (08:37→20:27)
[2020-08-30] MEDS: Divalproex Sodium 500 MG TAB.ER.24H 1000 MG PO (08:44)
--- NOTE | 2020-08-30 09:36 | PDOC.CMSAFED ---
- If Service Date Differs Date of service: 08/30/20 Time of Service: 09:36 Care Management Safety Plan Status: Voluntary - Reason for Wait Reason for Wait: Inpatient Admission VOLUNTARY FOR INPATIENT PSYCHIATRIC STABILIZATION. Patient is appropriate in all interactions since arriving at [facility]; Pt has demonstrated appropriate coping and communication skills, has articulated his or her needs and concerns and is fully engaged during staff interactions. A huddle is done in the afternoon with Dr. Muñoz, ED provider, Snow, nursing electronic maintenance supervisor, NILTON Silva, and JAME Turk. Arely, charge nurse, and Ella RN, join for part of the huddle. Safety plan has been established with patient, and care team, to adhere to patient goals, identify restrictions based on behavioral status, address nutrition, and determine allowed personal belongings, tools for hygiene and personal care. Determine level of activity including ambulation, level of supervision, visitors, and determine privileges based on behaviors and level of engagement by pt. Referrals have been sent to [facility], [facility], and [facility] for review. [facility] has already declined patient. SAFETY PLAN: Nigel has a certified therapy dog (see documentation) with him. He is allowed to take the dog out for walks 4 times a day [facility] and [facility] security. Nigel will also be allowed to smoke a cigarette when he walks the dog. This plan was made after discussion with and approval of Senior Administration. 1. Will remain on suicide precautions. In Paper Clothes 2. Will remain in room under direct supervision of one-on-one staff at all times provided by CPSO, MONITOR WORKER, JUDGE'S CLERK pull over machine operator. Exception: see above. 3. May have paper cups, plates, finger foods as well as a cardboard spoon with which to eat meals. 4. Follow [facility] Management of the Admitted Behavioral Health Patient policy. 5. Personal care: Permitted to shower with supervision and at RN discretion. 6. No personal belongings 7. Visitors-No visitors at this time 8. Activities: Coloring books, crayons, music tablet, and other activities at RN discretion. 9. Bathroom privileges with escort in the ED. 10. Phone: May use hospital phone for incoming and outgoing phone calls at RN discretion. 11. Due to VOLUNTARY status, if patient wishes to leave [facility], staff will contact [facility] Crisis Screener ([phone]) and On-Call Mechanical Cad Drafter ([phone]) as soon as possible. In the event of elopement, notify [facility] Police ([phone]). Patient is currently voluntarily at [facility] and seeking inpatient admission when a bed becomes available. [facility] Frontline Supervisor Weaving will continue seeking placement. Please contact the Choral Director Mechanical Cad Drafter ([phone]) and [facility] Supervisor Weaving ([phone]) for any needed changes in the Safety Plan. Safety plan has been provided to interdepartmental care team.
--- NOTE | 2020-08-30 14:36 | PDOC.MHCN ---
Date of service: 08/30/20 Time of Service: 12:30 Mental Health Crisis Note Presenting Issue How did you arrive at the ED and why did you come: The client presented to [facility] ED via ambulance from [facility] under voluntary status with chief concerns of dysregulation, impulsivity, and threats toward self and residential staff. He has been awaiting voluntary in-patient placement since 08.24.20 and has received 155hrs of medical observation. Precipitating Factors This telegraphic typewriter operator chief woke client for assessment and status update. Presentation was improved as compared to 08.29.20. Client was polite, cooperative, and appropriately responsive throughout assessment proces. He was alert and oriented x3 with notable deficits in recent and short-term memory. Client reported that he did not recall all the specifics of asessment yesterday and was unable to fully recall who this telegraphic typewriter operator chief was. Mood reported as Pretty fine today with euthymic / pleasant affect. No reported sleep or appetite issues.No report or evidence of delusions, hallucinations, or psychotic thought process today. The client did not endorse SI/HI/SIB, intent or plan. Decreased tangentiality today as compared to 08.29.20 as client answered all questions directly in a calm and controlled manner. He reported feeling distressed earlier in the day following a phone converstation he had with his mother in which he alleged that she threatened to file for guardianship and send him to a state-operated psychiatric facility in [place]. Client stated It was emotionally upsetting. Just because I have occasional thoughts of harming myself when upset doesn't mean I'm going to do. I got upset and I came here to get some medications to help with that. Client verbalized understanding of current status and indicated that he is still seeking voluntary in-patient placement. Disposition BEHAVIOR: Calm, cooperative, appropriate EYE CONTACT: Good MOOD: Pretty fine today AFFECT: Euthymic / pleasant APPETITE: No reported issues SLEEP(trouble falling/staying asleep: No reported issues Plan Client disposition remains voluntary and will be referred for in-patient placement accordingly. Per Rosalee Chow, [facility] CM, [facility] remain reluctant to accept the client back without placement. The client remains cooperative and has taken all scheduled medications. He does not present as an imminent danger to himself or others at time of assessment but may require an additional evaluation if he decides to discharge. Updated referrals faxed 08.29.20 to [facility] and . Currently there is no capacity. Signature Clinician's Name/Title: NILTON Perez [facility] clinician / hp
--- NOTE | 2020-08-30 15:14 | PDOC.ERCMPRO ---
- If Service Date Differs Date of service: 08/30/20 Time of Service: 15:14 Care Management Progress Note S/O: Nigel is sitting up in bed when CM comes to meet with him. He is pleasant, talkative and shares his day did not start out well. He apparently spoke with his mom on the telephone and he reports that she told him he cannot return to the [facility] and the only option he has is to jed his mom guardianship, so she can place him in a psychiatric hospital in [place] where he will live for the remainder of his life. CM explains to him that my understanding is that he can return to [facility] after he goes to a psychiatric hospital to have his medication adjusted. Nigel states he is willing to go back to [facility] where he formed relationships with staff the last time he was there. Nigel also asks for assistance in applying for food stamps in [place]. CM contacts [facility] and speaks with Caren who is agreeable to outreaching to Nigel to assist with the application. CM will continue to follow. A: Nigel is a 30 year old male who remains at [facility] awaiting a voluntary psychiatric placement. He first presented in the ED on 08/24/2020. P: Referrals are made to [facility], [facility], and [facility] for review. [place] has declined patient. [facility] do not have any beds available currently. Nigel will remain at [facility] while [facility] continues to seek placement. CM will continue to follow. - Status Status: Voluntary - Reason for Wait Reason for Wait: Inpatient Admission
[2020-08-31] MEDS: diphenhydrAMINE 25 MG CAP PO (03:42)
[2020-08-31] MEDS: LORazepam 2 MG/ML VIAL IM (05:34)
--- NOTE | 2020-08-31 08:07 | NUR.NOTE ---
PT did just wake up and ask to go to bathroom. On the walk to bathroom, PT was staggering. When asked if he was ok, PT stated, I'm a bit dizzy this morning. RN notified. Nursing Note:
--- NOTE | 2020-08-31 08:39 | CMSP_ITS ---
- If Service Date Differs Date of service: 08/31/20 Time of Service: 08:39 Care Management Safety Plan Status: Voluntary - Reason for Wait Reason for Wait: Inpatient Admission VOLUNTARY FOR INPATIENT PSYCHIATRIC STABILIZATION. Patient is appropriate in all interactions since arriving at [facility]; Pt has demonstrated appropriate coping and communication skills, has articulated his or her needs and concerns and is fully engaged during staff interactions. Safety plan has been established with patient, and care team, to adhere to patient goals, identify restrictions based on behavioral status, address nut rition, and determine allowed personal belongings, tools for hygiene and personal care. Determine level of activity including ambulation, level of supervision, visitors, and determine privileges based on behaviors and level of engagement by pt. Referrals have been sent to [facility], [facility], and [facility] for review. [facility] has already declined abraham ent. SAFETY PLAN: Nigel has a certified therapy dog (see documentation) with him. He is allowed to take the dog out for walks 4 times a day accompanied by CPSO and hospital security. Nigel will also be allowed to smoke a cigarette when he walks the dog. This plan was made after discussion with and approval of Senior Administration. 1. Will remain on suicide precautions. In Paper Clothes 2. Will remain in room under direct supervision of one-on-one staff at all times provided by CPSO, NILES, GROUND HELPER STRE[address] RAILWAY bobcat operator. Exception: see above. 3. May have paper cups, plates, finger foods as well as a cardboard spoon with which to eat meals. 4. Follow [facility] Management of the Admitted Behavioral Health Patient policy. 5. Personal care: Permitted to shower with supervision and at RN discretion. 6. No personal belongings 7. Visitors-No visitors at this time 8. Activities: Coloring books, crayons, music tablet, and other activities at RN discretion. 9. Bathroom privileges with escort in the ED. 10. Phone: May use hospital phone for incoming and outgoing phone calls at RN discretion. 11. Due to VOLUNTARY status, if patient wishes to leave [facility], staff will contact [facility] Crisis Screener ([phone]) and On-Call Clerical Secretary ([phone]) as soon as possible. In the event of elopement, notify [facility] Police ([phone]). Patient is currently voluntarily at [facility] and seeking inpatient admission when a bed becomes available. [facility] Frontline Industrial Nurse will continue seeking placement. Please contact the Complaint Clerk Clerical Secretary ([phone]) and [facility] Industrial Nurse ([phone]) for any needed changes in the Safety Plan. Safety plan has been provided to interdepartmental care team.
[2020-08-31] MEDS: QUEtiapine 25 MG TAB 50 MG PO ×3 (08:41→19:43)
[2020-08-31] MEDS: OLANZapine 10 MG TAB PO ×2 (08:41→19:43)
[2020-08-31] MEDS: Divalproex Sodium 500 MG TAB.ER.24H 1000 MG PO (08:41)
--- NOTE | 2020-08-31 09:14 | NUR.NOTE ---
MH in room with PTNursing Note:
--- NOTE | 2020-08-31 09:29 | NUR.NOTE ---
left room. Nursing Note:
--- NOTE | 2020-08-31 10:16 | NUR.NOTE ---
PT taken upstairs for shower. RN aware. PT escorted by this LANDSCAPING CREW LEADER and shabbir on duty.Nursing Note:
[2020-08-31] MEDS: LORazepam 1 MG TAB PO ×2 (11:36→15:03)
--- NOTE | 2020-08-31 14:07 | ED.GENADUL_ITS ---
Discharge Plan Disposition Patient Disposition: [facility] Condition: Good Discharge Details Clinical Impression: Adjustment disorder, Anxiety Primary Care Provider: Roselyn Ayala ED Provider: Marek Garcia Home Meds and New Rx's Prescriptions: Continued divalproex [Depakote Sprinkles] 125 mg Capsule, Delayed Rel Sprinkle 1,000 mg PO DAILY RF: 0 No Action olanzapine 5 mg Tablet,Disintegrating 5 mg PO BID RF: 0 Discharge Instructions Additional Instructions: Mental health and primary care provider will need to coordinate to determine best course of action in regards to medication and/or medical marijuana. In the meantime we have provided you with 0.5 mg of Ativan for you to take at night as needed at least for the next 5 days while things are being worked out. Return to ED if any concerns, unsafe feelings, suicidal thoughts. Referrals: [facility] [Provider Group] Roselyn Ayala MD [Primary Care Provider] - Medical Decision Making Received signout on the patient for the morning of September 02. He remains calm and interactive with staff. As of 2:15 PM he has been accepted for transfer to the [facility]. HPI General Mode of arrival: EMS . Date/Time Provider Initiated Documentation: 08/24/20 00:57 . Limitations to Documentation: no limitations . Information obtained by: patient, EMS and RN notes reviewed . Related Data Home Medications Medication Instructions Recorded Confirmed divalproex [Depakote Sprinkles] 1,000 mg PO DAILY 08/24/20 08/24/20 olanzapine 5 mg PO BID 08/24/20 08/24/20 Allergies Allergy/AdvReac Type Severity Reaction Status Date / Time No Known Allergies Allergy Unverified 08/25/20 17:03 General Stated Complaint: PsychEval NATHANAEL: [facility] Medical History (Updated 08/24/20 @ 02:42 by Simon Lomas MD) Asplenia Bipolar affect, depressed Chronic headache Hx of suicide attempt Hx of traumatic brain injury Seizure disorder Vitamin D deficiency Surgical History (Updated 08/24/20 @ 02:36 by Simon Lomas MD) S/P exploratory laparotomy Status post tracheostomy Social History Smoking/Tobacco Use Status: Current every day Tobacco Type: cigarettes Smoking risk assessment performed?: Yes Alcohol Intake: never Drug use: Occasionally Substance use type: marijuana Do you feel safe at home: No Course Vital Signs Vital signs: Vital Signs Temperature 36.9 C 08/24/20 00:53 Pulse 86 08/24/20 00:53 Respiratory Rate 16 08/24/20 00:53 Blood Pressure 103/66 08/24/20 00:53 Pulse Oximetry 96 08/24/20 00:53 Temperature 37.0 C 08/28/20 17:18 Temperature Source Oral 08/28/20 17:18 Pulse 87 08/28/20 17:18 Respiratory Rate 16 08/28/20 17:18 Respiratory Effort Non-Labored 08/26/20 23:03 Respiratory Depth Normal 08/26/20 23:03 Respiratory Pattern Normal 08/26/20 23:03 Blood Pressure 123/75 08/28/20 17:18 Blood Pressure Position Sitting 08/24/20 00:53 Pulse Oximetry 96 08/28/20 17:18 Oxygen Delivery Method Room Air 08/28/20 17:18 Oxygen Flow Rate 0 08/28/20 17:18 Pain Level 8 08/26/20 22:15 Lab/Test Results Lab/Test Results: Laboratory Tests Range/Units 08/24/20 08/24/20 08/24/20 17:35 17:35 17:35 WBC (4.4-10.8) 10^3/uL 12.21 H RBC (4.36-5.78) 10^6/uL 4.81 Hgb (13.5-17.5) g/dL 15.5 Hct (40.0-50.0) % 45.7 MCV (80-95) fL 95.0 MCH (27.0-33.0) pg 32.2 MCHC (32.0-36.0) % 33.9 RDW (11.8-14.1) % 14.2 H Plt Count (130-400) 10^3/uL 370 MPV (8.0-11.0) fL 10.7 Immature Gran % 0.5 Neutrophils % 42.0 Lymphocytes % 40.2 Monocytes % 12.2 Eosinophils % 4.0 Basophils % 1.1 Nucleated RBC % % 0 Absolute Neutrophils (1.2-6.7) 10^3/uL 5.13 Absolute Lymphocytes (1.2-3.4) 10^3/uL 4.91 H Absolute Monocytes (0.1-0.8) 10^3/uL 1.49 H Absolute Eosinophils (0.0-0.7) 10^3/uL 0.49 Absolute Basophils (0.0-0.2) 10^3/uL 0.13 RBC Morphology Normal Sodium (136-145) mmol/L 143 Potassium (3.5-5.1) mmol/L 4.3 Chloride (98-107) mmol/L 106 Carbon Dioxide (21.0-32.0) mmol/L 29.1 Anion Gap (3-11) mmol/L 7.9 BUN (7-18) mg/dL 10 Creatinine (0.70-1.30) mg/dL 0.9 Estimated GFR/1.73 m2 (mL/min/1.73m2) >= 60.00 Glucose (74-106) mg/dL 87 Calcium (8.5-10.1) mg/dL 8.9 Total Bilirubin (0.2-1.0) mg/dL 0.7 AST (15-37) U/L 17 ALT (16-63) U/L 19 Alkaline Phosphatase (46-116) U/L 72 Total Protein (6.4-8.2) g/dL 7.4 Albumin (3.4-5.0) g/dL 3.8 Urine Opiates Screen (Negative) Urine Methadone Screen (Negative) Ur Barbiturates Screen (Negative) Ur Tricyclics Screen (Negative) Ur Amphetamines Screen (Negative) U Benzodiazepines Scrn (Negative) Urine Cocaine Screen (Negative) Ur THC Screen (Negative) Ethyl Alcohol (<3) mg/dL 4.1 COVID-19 Source Nasal/nares SARS-CoV-2 (PCR) (Negative) Negative Range/Units 08/24/20 17:55 WBC (4.4-10.8) 10^3/uL RBC (4.36-5.78) 10^6/uL Hgb (13.5-17.5) g/dL Hct (40.0-50.0) % MCV (80-95) fL MCH (27.0-33.0) pg MCHC (32.0-36.0) % RDW (11.8-14.1) % Plt Count (130-400) 10^3/uL MPV (8.0-11.0) fL Immature Gran % Neutrophils % Lymphocytes % Monocytes % Eosinophils % Basophils % Nucleated RBC % % Absolute Neutrophils (1.2-6.7) 10^3/uL Absolute Lymphocytes (1.2-3.4) 10^3/uL Absolute Monocytes (0.1-0.8) 10^3/uL Absolute Eosinophils (0.0-0.7) 10^3/uL Absolute Basophils (0.0-0.2) 10^3/uL RBC Morphology Sodium (136-145) mmol/L Potassium (3.5-5.1) mmol/L Chloride (98-107) mmol/L Carbon Dioxide (21.0-32.0) mmol/L Anion Gap (3-11) mmol/L BUN (7-18) mg/dL Creatinine (0.70-1.30) mg/dL Estimated GFR/1.73 m2 (mL/min/1.73m2) Glucose (74-106) mg/dL Calcium (8.5-10.1) mg/dL Total Bilirubin (0.2-1.0) mg/dL AST (15-37) U/L ALT (16-63) U/L Alkaline Phosphatase (46-116) U/L Total Protein (6.4-8.2) g/dL Albumin (3.4-5.0) g/dL Urine Opiates Screen (Negative) Negative Urine Methadone Screen (Negative) Negative Ur Barbiturates Screen (Negative) Negative Ur Tricyclics Screen (Negative) Negative Ur Amphetamines Screen (Negative) Negative U Benzodiazepines Scrn (Negative) Negative Urine Cocaine Screen (Negative) Negative Ur THC Screen (Negative) Positive A Ethyl Alcohol (<3) mg/dL COVID-19 Source SARS-CoV-2 (PCR) (Negative) Sign Out Sign Out Data: Sign Out Comment: history of tbi, seen by Dr. Lomas after Raine reported he was making suicidal statements. Pt denies being suicidal currently and plan was for d/c back to [facility] but they are declining to take him back. Is not willing to go voluntary to a facility and doesn't meet involuntary status. Care management trying to determine a dispo for the patient. Last updated by Catarino Pineda MD at 08/24/20 12:18 Sign Out Comment: [facility] seeking placement for medication noncompliance and history of threatening behavior. He is currently voluntary. Continue to monitor overnight. Will be held in the ED at this time. Last updated by Radha Hurley DO at 08/24/20 23:20 Sign Out Comment: Multiple changes in the patient's disposition yesterday eventually leading to an [facility] seeking placement for threatening behavior, medication noncompliance, and intermittent episodic suicidal ideations here. Currently patient is here awaiting mental health placement options. Last updated by Alcides Sarmiento DO at 08/25/20 06:44 Sign Out Comment: pt per report calm overnight, remains on voluntary status for psychiatric placement for threatening behavior, med noncompliance and intermittent sI Last updated by Catarino Pineda MD at 08/25/20 07:56 Sign Out Comment: Patient cooperative today. Remains on voluntary status for psychiatric placement for threatening behavior, medication noncompliance and intermittent SI. Last updated by Radha Hurley DO at 08/25/20 22:42 Sign Out Comment: Patient remained cooperative and stable throughout the evening. No complications. Patient slept well throughout the night. Patient will be signed out pending Last updated by Alcides Sarmiento DO at 08/26/20 06:07 Sign Out Comment: Care signed out to Dr. Pineda. Patient intermittently erratic. He did request and voluntarily except Haldol IM as well as Benadryl IM and Ativan IM earlier today. [facility], this acceptance was canceled after he escalated and had a code alvarez here. Care plan has been developed that would allow him to go outside for times a day with CPSSO and baggage security checker to allow his service animal to urinate and defecate and to allow him to smoke cigarettes. This care plan was discussed with the entire treatment team here today and cleared with risk-management as best case scenario for this patient. Given his erratic and intermittently threatening behavior as well as prior expression of suicidality, we have significant concerns that he will not be able to ensure his own safety and is intermittently not excepting treatment recommended. Plan will be to proceed with emergency evaluation. I have completed EE paperwork and second CERT will need to be performed. Disposition pending at time of signout. Last updated by Dominic Muñoz MD at 08/26/20 15:23 Sign Out Comment: Patient was made involuntary by Dr. Muñoz and [facility] but it did not get upheld during second cert so is now again voluntary awaiting placement Last updated by Catarino Pineda MD at 08/26/20 20:16 Sign Out Comment: Patient was made involuntary by Dr. Muñoz however a second CERT did not maintain and the patient is now awaiting voluntary placement. Patient remained stable throughout the night. No complications. Patient slept well. Last updated by Alcides Sarmiento DO at 08/27/20 06:13 Sign Out Comment: Continue to monitor overnight. Had an outburst today with mental health today but then was redirectable. Takes meds willingly and often asks for meds for his anxiety. Last updated by Radha Hurley DO at 08/27/20 20:26 Sign Out Comment: Patient continued to be stable throughout the night. He did voluntarily receive Valium and Benadryl to help rest. Still awaiting placement. Patient slept well throughout the night without any complaints Last updated by Alcides Sarmiento DO at 08/28/20 05:52 Sign Out Comment: Patient stable, here voluntarily, awaiting psych placement. Last updated by Dominic Muñoz MD at 08/29/20 15:25 Sign Out Comment: Patient cooperative this evening. Awaiting placement. Last updated by Radha Hurley DO at 08/29/20 23:56 Sign Out Comment: Patient slept and there were no issues over night. Seems to be doing ok with current medication regimen. Last updated by Simon Lomas MD at 08/30/20 07:17 Sign Out Comment: Patient napping intermittently, took his dog outside several times. No issues during my shift. Patient signed out to Dr. Sarmiento at time of shift change with placement pending Last updated by Paulina Muñoz MD at 08/30/20 16:32 Sign Out Comment: Patient slept throughout the day. Was given Ativan prior to signout. Patient stable throughout my shift. Patient being transitioned to the care of Dr. Lomas. Pending placement. Last updated by Alcides Sarmiento DO at 08/30/20 23:09 Sign Out Comment: Became extremely anxious and upset earlier this morning. Unable to control shaking or emotions. Continuously requested help. Received IM Ativan and has subsequently been much more calm. Still awaiting decision on placement Last updated by Simon Lomas MD at 08/31/20 07:22 Sign Out Comment: Patient awaits placement. Received oral Ativan 1mg for mild anxiety. Last updated by Marek Garcia MD at 08/31/20 14:10 Sign Out Comment: patient continues to be in the ED pending placement Last updated by Catarino Pineda MD at 08/31/20 16:16 Sign Out Comment: Patient continues to be in ED pending disposition from mental health and case management coordinated care. Patient stable throughout the night. Required no medications throughout the night. Last updated by Alcides Sarmiento DO at 09/01/20 07:35 Sign Out Comment: Remains stable, interactive with staff, Iftikhar reviewing chart Last updated by Marek Garcia MD at 09/01/20 14:43 Sign Out Comment: still pending placement Last updated by Catarino Pineda MD at 09/01/20 17:45 Sign Out Comment: Patient remained stable throughout the night. Still pending placement. Last updated by Alcides Sarmiento DO at 09/02/20 07:12
[2020-08-31 14:08] VITALS: BP 124/78; PULSE 115; RESP 18; O2SAT 97
[2020-08-31] MEDS: LORazepam 1 MG TAB 2 MG PO (16:49)
[2020-08-31] MEDS: diazePAM 5 MG TAB 10 MG PO (19:47)
--- NOTE | 2020-08-31 19:48 | PDOC.MHCN ---
Date of service: 08/31/20 Time of Service: 19:48 Mental Health Crisis Note Presenting Issue How did you arrive at the ED and why did you come: Pt arrived 08.24.2020 from his residential facility for re-stabilization of his mood as he was alleged to have been out of control there. Precipitating Factors Pt has consistently denied SI and HI and there are no signs of delusions however, he is struggling with symptoms relating to his TBI and MH issues. Disposition BEHAVIOR: Pt's behavior has significantly improved since he was started on Seroquel 3 days ago. Although he still has outbursts they appear to be less intimidating and not as long as they had been. He noted today that he likes that he feels more in control. EYE CONTACT: Pt makes better and less intense eye contact. MOOD: Pt's mood is greatly improved with the addition of the new medication. He reported that he still feels like he is stuck in the hospital room like a dog with a shock collar. He understands that this is safer than him being out on the street which he states he worries about. AFFECT: Pt's affect is congruent with his mood. APPETITE: Pt identified that he is eating more than he is ussed to with the new medicine which is out of character for him but stated that he is doing his best to recognize that he is feeling better. SLEEP(trouble falling/staying asleep: Pt reported that he woke up and needed some Ativan last night because he was having some crazy dreams that scared him. He was able to go back to sleep. Plan This clinician outreached to [facility] and spoke to [facility] who reported that they were not taking him back because Leila Serrano, Archives Director of [facility] had witnessed the Pt being verbally aggressive on 08.26.2020 while she was there for an unrelated reason and informed EEF that they would not be accepting him back. Despite [facility]'s and [facility]' attempts to get EEF to reconsider now that the Pt is on a stable medication that has greatly improved his mood swings neither [facility] nor [facility] received a call back from them to reconsider his stay nor Leila Fiore form [facility] in response to next steps if he is not accepted. Signature Clinician's Name/Title: Asia Hurt MS, [facility] Emergency Services Clinician, [facility]
--- NOTE | 2020-09-01 06:50 | NUR.NOTE ---
Nursing Note: Around 0045 today, patient reports being pissed because pt woke up too early and needed a sedative to go back to sleep. Patient reports I may look calm, but I'm ready to freak out. Medications were ordered, however, pt went back to sleep around 0100 and no medications were given.
[2020-09-01] MEDS: LORazepam 1 MG TAB PO ×2 (07:49→16:10)
[2020-09-01] MEDS: Divalproex Sodium 500 MG TAB.ER.24H 1000 MG PO (10:13)
[2020-09-01] MEDS: OLANZapine 10 MG TAB PO ×2 (10:13→21:32)
[2020-09-01] MEDS: QUEtiapine 25 MG TAB 50 MG PO ×3 (10:13→21:32)
[2020-09-01 17:47] VITALS: BP 124/72; PULSE 100; RESP 20; TEMP 36.7; O2SAT 99
[2020-09-01] MEDS: diazePAM 5 MG TAB 10 MG PO ×2 (17:51→23:41)
--- NOTE | 2020-09-01 17:57 | CMPROGNOTE_ITS ---
- If Service Date Differs Date of service: 09/01/20 Time of Service: 17:57 Care Management Progress Note Nigel remains at [facility] awaiting a psych placement. JAME was advised by a co- worker that [facility] is now refusing to take Nigel back. CM again attempts to reach Pema Fiore ([phone]), TBI Manager Desktop, and is able to connect with her. Pema reports she has spoken with [facility] and she confirms that Nigel can not return there. She states all of her other providers either have no availability or are short-staffed, so they likely won't be able to accept Nigel either. She is going to take the steps necessary to enroll Nigel into the [facility], as this will provide him with better housing options. Pema requests that CM send notes for review and CM faxes the notes to her attention at 11:24 am on this day. Pema reports she will provide an update towards the end of the day, but there is no further contact with her. JAME also receives a phone call from Tonya Garcia ([phone]), RN, of the [facility]. Tonya is calling to obtain an update on Nigel and to offer her assistance. After being apprised of the situation by JAME, Tonya suggests that a team meeting be coordinated with Nigel's community providers. In the afternoon, Tonya sends appropriate releases to JAME who agrees to obtain Nigel's signature so a meeting can be coordinated sometime next week. Tonya states that Nigel's mother is afraid of him, so living with her is not an option. She states other family members are also afraid of him. The sister he was living with prior to going to [facility] is the only one who was previously willing to take him in. However, Tonya states this was not an ideal living situation for Nigel as there was alcohol in the home and Nigel had to sleep on the couch. During the morning hours, JAME is advised by the hydrological technical officer that Britany from the [facility] has called with respect to Nigel to ask who will be doing the doc-to-doc. JAME telephones the [facility] to ask if they are accepting Nigel for admission and is informed they were told placement was no longer being sought for Nigel. After speaking with ED staff and learning that no one at the hospital had told the [facility] that placement was no longer needed, JAME called the [facility] again and spoke with Leila. Leila advises that Asia from [facility] has called them to say they were no longer seeking placement and she instructs CM to follow up with Asia. JAME then sends a text message to Asia regarding this matter and Asia confirms having told the [facility] that placement was no longer necessary. Asia joins a huddle at approximately 10:30 am at [facility] where she reiterates that Nigel does not meet criteria for a psychiatric hospitalization because he is denying SI and HI and he has been able to regulate his mood for several days now. Asia is asked about the Care Bed and she agrees to check into it. In the afternoon, Asia reports that she called Bandar at [facility] and learned that they wanted Nigel hospitalized for an assessment, diagnosis, and for medication management. She then reportedly called [facility] to advise them that placement was still being sought for Nigel. The [facility] asks that notes for the last 72 hours be faxed to them for review and the hydrological technical officer sends the appropriate notes. A little after 4:00 pm, Dr. Dominic Muñoz meets with JAME. Together, we contact Asia from [facility]. Dr. Muñoz requests that Asia call all crisis beds in the State to see if any of them have availability. Asia calls JAME later on to advise that crisis beds are either full or have declined to accept Nigel. The [facility] Care Bed is also currently full. [facility] has reviewed the updated clinicals faxed to them, but have no bed availability at this time. Nigel will, therefore, remain at [facility] for now. At Dr. Muñoz's request, JAME contacts Taylor Henderson ([phone]), RN, [facility], to request that someone drop off Nigel's cell phone at [facility], so he can have access to phone numbers for his family. Taylor advises that the phone will be dropped off sometime tomorrow morning. If Nigel is not accepted by the [facility] tomorrow, Dr. Muñoz wishes to review the appropriateness of Nigel remaining at [facility] through the weekend. A SAFETY PLAN FOR NIGEL IS NO LONGER NECESSARY, HE IS NEITHER SUICIDAL OR HOMICIDAL. - Status Status: Voluntary - Reason for Wait Reason for Wait: Inpatient Admission
--- NOTE | 2020-09-01 21:33 | PDOC.MHCN ---
Date of service: 09/01/20 Time of Service: 21:33 Mental Health Crisis Note Presenting Issue How did you arrive at the ED and why did you come: Pt arrived on 08.24.2020 after [facility] sent him for medication stabilization. Precipitating Factors Pt denied SI and HI. There are no signs of delusions. Disposition BEHAVIOR: Pt is cooperative and engaged and showing good control over his emotions. He is able to show appropriate frustration and anger about his dis-enrollment form EE. H has had no verbal or behavioral outburst in the last 4 days. EYE CONTACT: Pt makes good eye contact. MOOD: Pt's mood is calm and engaging. He is slightly anxious about the news about EEF but works through this without emergency medications. AFFECT: Pt's affect presents as the same as his mood. APPETITE: Pt is eating more frequently and although this is out of the normal he is accepting of this because of how he feels emotionally. SLEEP(trouble falling/staying asleep: Pt reported yup I slept. Pt is reported to have slept through the night. Plan The Pt's future security for housing and medication management is uncertain at this time. Ajay Mcmullen ([facility]) refused to accept the Pt back on 08.31.2020 after this clinician phoned [facility] to report the Pt's significant change in disposition and stabilization with an employee by the name of Daniel. Based on Daniel's report of an observation Leila Serrano witnessed while at [facility] for an unrelated event on 08.26.2020 they had disenrolled the Pt and were awaiting a new placement. As well, a conversation with Emergency Vulcanized Fiber Unit Operator, Dr. Dominic Muñoz and Care Manger Rosalee Chow at approximately 4:15pm on 09.01.[address] Muñoz stated that he plans to discharge the Pt to the community without proper safety measures for housing or medication management in place by 09.02.2020, when he is on shift. This clinician spent the day 09.01.2020 assessing, huddling with [facility] treatment team members and calling residential facilities local and state wide that had potential bed availabilities as well as, [place] and Crisis beds state wide to try to find safe placement/housing. There were no available placements at that time. This clinician also met with different management levels at [facility] to try and put something in place for safe housing for this Pt without immediate success. This clinician shared this with both Rosalee Chow, home care physical therapist for [facility] as well as Dr. Catarino Pineda to be transparent in the efforts and lack of support available at this time. Dr. Pineda will not discharge tonight and suggest a meeting with [facility] administration tomorrow, 09.02.2020. This clinician will attempt to do this on 09.02.2020 to ensure this Pt has adequate and appropriate supports necessary that he is required due to his disability, to ensure his safety and will increase his likelihood of not returning to the hospital in an emergent situation that will contradict the attempts of this current hospitalization.
[2020-09-02] MEDS: QUEtiapine 25 MG TAB 50 MG PO ×2 (09:15→14:45)
[2020-09-02] MEDS: Divalproex Sodium 500 MG TAB.ER.24H 1000 MG PO (09:15)
[2020-09-02] MEDS: OLANZapine 10 MG TAB PO (09:15)
[2020-09-02] MEDS: LORazepam 1 MG TAB PO ×2 (10:23→14:51)
[2020-09-02 11:23] LABS: Source Nasal/Nares
[2020-09-02 12:21] LABS: COVID-19 PCR Negative (Negative)
[2020-09-02 14:20] VITALS: BP 111/67; PULSE 104; RESP 16; TEMP 35.8; O2SAT 96
--- NOTE | 2020-09-02 15:03 | CMACTNOTE_ITS ---
- If Service Date Differs Date of service: 09/02/20 Time of Service: 15:03 Care Management Activity Note Nigel is accepted for a voluntary placement at [facility]. Transport is provided by [facility].
--- NOTE | 2020-09-02 15:07 | PDOC.MHCN_ITS ---
Date of service: 09/02/20 Time of Service: 15:07 Mental Health Crisis Note Presenting Issue How did you arrive at the ED and why did you come: see previous notes Precipitating Factors Pt denied SI and HI his thoughts are clear. Disposition BEHAVIOR: PT is cooperative and polite. EYE CONTACT: Eye contact is good. MOOD: Pt reported that he is a wreak inside but is trying to be positive. AFFECT: Pt's affect is normal. APPETITE: Pt is eating. SLEEP(trouble falling/staying asleep: Pt reported that he slept well. Plan [facility] was accepted [facility] and left [facility] at 3pm. Signature Clinician's Name/Title: Asia Hurt MS, [facility] Emergency Services Clinician, [facility]
== END 2020-09-02 18:45 | disposition short-term general hospital (02) ==
PROVIDERS: Physician Assistant; Emergency Provider Emergency Medicine; PCP Family Medicine
DX: F43.22 Adjustment disorder with anxiety (principal); Z75.1 Person awaiting admission to adequate facility elsewhere; Z20.822 Contact with and (suspected) exposure to COVID-19; R45.851 Suicidal ideations
CPT/HCPCS: 36415; 80053; 80307; 87635; 96372; 99285; 80320; 85025; 99284; J1200; J1630; J2060; J3360; J3490

== ENCOUNTER 2020-10-04 02:28 | Outpatient (CLI) | payer MEDICAID, SELFPAY ==
--- NOTE | 2020-10-04 09:38 | DI.RAD_ITS ---
Exam(s) XR SHOULDER RT COMPLETE 2+V EXAM: XR SHOULDER RT COMPLETE 2+V CLINICAL HISTORY: RT SHOULDER PAIN, M25.511. TECHNIQUE: 2D digital imaging was performed. COMPARISON: CR CHEST 2 VIEWS PA,LAT from 02/18/2012 CR CHEST 2 VIEWS PA,LAT from 02/18/2012 FINDINGS: BONES: Old healed fracture mid clavicle. Minimal deformity of right upper ribs. No acute fracture is present. No bony destructive lesion is seen. No significant degenerative changes. JOINTS: No dislocation present. SOFT TISSUE: Stent at the aortic arch. Suture material at the medial left lung apex. IMPRESSION: Old right clavicle and right upper rib fracture. No acute abnormality. DATA REPOSITORY: RADIATION DOSE DELIVERED:
--- NOTE | 2020-10-04 09:38 | DI.RAD_ITS ---
Exam(s) XR ANKLE LT COMPLETE EXAM: XR ANKLE LT COMPLETE CLINICAL HISTORY: LT ANKLE PAIN, M25.572 TECHNIQUE: 2D digital imaging was performed. COMPARISON: No exams were available for comparison FINDINGS: BONES: No acute fracture is present. No bony destructive lesion is seen. The talar dome appears int act. JOINTS:The ankle mortise is normally aligned. SOFT TISSUE: Normal. IMPRESSION: Unremarkable radiographs of the left ankle. DATA REPOSITORY: RADIATION DOSE DELIVERED:
== END 2020-10-04 02:48 ==
PROVIDERS: PCP Family Medicine; Visit Provider Family Medicine
DX: M25.511 Pain in right shoulder (principal); M25.572 Pain in left ankle and joints of left foot
CPT/HCPCS: 73030; 73610

== ENCOUNTER 2021-04-07 17:16 | Outpatient (REF) | payer MEDICAID, SELFPAY ==
[2021-04-09 15:43] LABS: COVID-19 RT-PCR UVMMC Result Negative (Negative)
== END 2021-04-07 17:17 | disposition home or self-care (01) ==
LOC: NCHCN 17:16
PROVIDERS: PCP Family Medicine; Visit Provider Family Medicine
DX: R51.9 Headache, unspecified (principal)
CPT/HCPCS: U0003

== ENCOUNTER 2022-02-06 15:40 | Emergency (ER) | payer MEDICAID, SELFPAY ==
[2022-02-06 15:45] VITALS: BP 123/86; PULSE 100; RESP 18; TEMP 37.3; O2SAT 95
--- NOTE | 2022-02-06 16:30 | DI.CT_ITS ---
Exam(s) CT HEAD FACIAL WO EXAM: CT HEAD FACIAL WO CLINICAL HISTORY: headinjury. TECHNIQUE: Imaging Protocol: Axial computed tomography images with coronal and sagittal reformatted images were created and reviewed COMPARISON: No exams were available for comparison FINDINGS: BRAIN: Left ureteral hematoma no fractures. There are no skull fractures nor fluid in the visualized paranasal sinuses. Mild mucosal thickening is noted in the left maxillary sinus. There is no evidence of intracranial hemorrhage, mass effect, or shift of midline structures. There are no extra-axial fluid collections. The ventricles are not enlarged or shifted and there is no blo od within the ventricular system nor within the basal cisterns. MAXILLOFACIAL CT SCAN: Prominent hematoma over left orbit-forehead. There is no evidence of facial fractures nor fluid in the visualized paranasal sinuses. There is no evidence of orbital blowout fracture. Zygomatic arches are intact. IMPRESSION: No acute intracranial findings on this noninfused CT scan of the brain. Prominent hematoma over left orbital region. No evidence of facial bone fractures nor orbital fractures. RADIATION DOSE DELIVERED: 1,085.68mGy.cm Total DLP DATA REPOSITORY: All CT scans at this facility are submitted to the National Radiology Data Registry (NRDR) Dose Index Registry (DIR) with the [employer] ([employer]). RADIATION OPTIMIZATION: All CT scans at this facility use at least one of these dose optimization te chniques: automated exposure control; mA and/or kV adjustment per patient size (includes targeted exa ms where dose is matched to clinical indication); or iterative reconstruction.
--- NOTE | 2022-02-06 17:11 | DI.VRAD_ITS ---
PROCEDURE INFORMATION: Exam: CT Head Without Contrast Exam date and time: 02/06/2022 4:40 PM Age: 32 years old Clinical indication: Other: Head and left orbit injury TECHNIQUE: Imaging protocol: Computed tomography of the head without contrast. Radiation optimization: All CT scans at this facility use at least one of these dose optimization techniques: automated exposure control; mA and/or kV adjustment per patient size (includes targeted exams where dose is matched to clinical indication); or iterative reconstruction. COMPARISON: No relevant prior studies available. FINDINGS: Brain: No hemorrhage. Unremarkable white matter. No mass effect. Left temporal lobe atrophy. Cerebral ventricles: No ventriculomegaly. Paranasal sinuses: Bilateral mild maxillary sinus mucosal thickening. No air-fluid levels. Mastoid air cells: Visualized mastoid air cells are well aerated. Bones/joints: Unremarkable. No acute fracture. Soft tissues: Unremarkable. IMPRESSION: 1. No acute intracranial findings. 2. Left temporal lobe atrophy. Consider follow-up nonemergent brain MRI. 3. Left periorbital soft tissue swelling. PROCEDURE INFORMATION: Exam: CT Maxillofacial Without Contrast Exam date and time: 02/06/2022 4:40 PM Age: 32 years old Clinical indication: Other: Head and left orbit injury TECHNIQUE: Imaging protocol: Computed tomography of the of the face without contrast. Radiation optimization: All CT scans at this facility use at least one of these dose optimization techniques: automated exposure control; mA and/or kV adjustment per patient size (includes targeted exams where dose is matched to clinical indication); or iterative reconstruction. COMPARISON: No relevant prior studies available. FINDINGS: Orbital cavities: Orbits are normal. Globes are unremarkable. Bones/joints: No acute fracture. Paranasal sinuses: Bilateral maxillary sinus mucosal thickening. No air-fluid levels. Soft tissues: Left periorbital soft tissue swelling. IMPRESSION: 1. No facial bone fracture. 2. Left periorbital soft tissue swelling. Dictated and Authenticated by: Rl Anna MD. Ordering:EBEN Cartagena MD
--- NOTE | 2022-02-06 17:28 | W.ED.GENAD ---
Discharge Plan Disposition Patient Disposition: HOME Condition: Stable Discharge Details Clinical Impression: Head injury, Periorbital ecchymosis of left eye Primary Care Provider: Roselyn Ayala ED Provider: Mitzi Duran Home Meds and New Rx's Prescriptions: New cephalexin 500 mg capsule 500 mg PO Q6H 7 Days Qty: 28 0RF Continued olanzapine 15 mg tablet 15 mg PO QHS Label Comments: 03/13/21-Pt rpeorts 15 mg, pharmacy ([place]) reports rx recently changed to 10 mg po daily divalproex 500 mg tablet,delayed release (DR/EC) 1,000 mg PO HS Label Comments: 03/13/21- pharmacy ([place]) confirms dose aspirin [Adult Aspirin Regimen] 81 mg tablet,delayed release (DR/EC) 81 mg PO BID Label Comments: 03/13/21 pharmacy ([place]) states rx is for 81 mg po daily. Pt states he takes BID. methylphenidate HCl [Ritalin] 5 mg tablet 5 mg PO DAILY Label Comments: 03/13/21- pt reports 5 mg daily, pharmacy ([place]) states rx is for 5 mg po BID. Discharge Instructions Instructions: Head Injury (ED) Additional Instructions: ice, tylenol for pain take antibitics for the next several days yogurt daily while on antibiotics return earlier with new or worsening complaints please stop dusting Referrals: Roselyn Ayala MD [Primary Care Provider] - Discharge Data Discharge Date/Time-TO BE ENTERED AT DEPARTURE: 02/06/22 17:44 Medical Decision Making tetanus up to date keep wound clean and dry suture removal in 5 days return precautions reviewed ct head and facial negative per radiology interpreation and my reviewed Medical Records Medical records reviewed: Yes I reviewed the patient's medical records. Lab Data Lab results reviewed: Yes I reviewed the patient's lab results. HPI General Date/Time Provider Initiated Documentation: 02/06/22 15:45. HPI Narrative: This 32-year-old female presents with report of Dr. Cross last evening which consisted of inhaling air hospitalization from , He states he when he was high he fell, hitting his head. This was approximately 9:00 last evening. He denies any loss conscious. He states he did not notice any bleeding until morning. Denies any vision change or history of coagulopathy. He denies any strength or sensation change. He denies any headache. He denies any additional illicit drug use. Related Data Home Medications Medication Instructions Recorded Confirmed aspirin 81 mg tablet,delayed 81 mg PO BID 03/13/21 02/06/22 release (Adult Aspirin Regimen) divalproex 500 mg tablet,delayed 1,000 mg PO HS 03/13/21 02/06/22 release methylphenidate HCl 5 mg tablet 5 mg PO DAILY 03/13/21 02/06/22 (Ritalin) olanzapine 15 mg tablet 15 mg PO QHS 03/13/21 02/06/22 cephalexin 500 mg capsule 500 mg PO Q6H 7 days #28 caps 02/06/22 Previous Rx's Medication Instructions Recorded cephalexin 500 mg capsule 500 mg PO Q6H 7 days #28 caps 02/06/22 Allergies Allergy/AdvReac Type Severity Reaction Status Date / Time No Known Allergies Allergy Verified 02/06/22 17:31 General Stated Complaint: Laceration NATHANAEL: 3 Review of Systems All systems reviewed & are unremarkable except as noted in HPI and below PFSH All Active Problems (Updated 02/06/22 @ 17:31 by OUMOU Herman) Head injury (Acute) Periorbital ecchymosis of left eye (Acute) Conductive hearing loss in right ear (Acute) Traumatic arthritis of left ankle (Acute) Chronic pain due to injury (Acute) Carotid pseudoaneurysm (Acute) Aortic dissection (Acute) Cognitive and neurobehavioral dysfunction following brain injury (Acute) Adjustment disorder (Chronic) Anxiety (Chronic) Chronic headache (Acute) S/P exploratory laparotomy (Chronic) Bupropion overdose (Acute) Alcohol intoxication (Acute) Medical History ADHD Asplenia Bipolar affect, depressed Delusional disorder GERD (gastroesophageal reflux disease) Hx of suicide attempt Hx of traumatic brain injury Polysubstance abuse Recurrent spontaneous pneumothorax Vitamin D deficiency Surgical History S/P aortic dissection repair S/P percutaneous endoscopic gastrostomy (PEG) tube placement S/P tracheoplasty Status post tracheostomy Social History Smoking/Tobacco Use Status: Current every day Tobacco Type: e-cigarettes Smoking risk assessment performed?: Yes Alcohol Intake: never Drug use: Daily Substance use type: marijuana and inhalants Household members: family Number of Children: 0 current occupation: Unemployed Pets and animals: Yes Pets and animals: dog(s) Do you feel safe at home: Yes Do you feel safe in your relationship?: Yes Exam Const General: cooperative, comfortable and no acute distress Orientation: alert and oriented x3 [facility] Head images: 1. 1 inch laceration with periorbital hematoma noted EOMI No proptosis , Extraocular is intact Other: Uvula midline, no hemotympanum Eyes Pupils: PERRL Neck Other: No midline tenderness Chest Chest: normal inspection of the chest Resp Effort & Inspection: normal respiratory effort Cardio Rate: regular rate GI Inspection: normal to inspection Neuro General: patient alert and patient oriented x3 Other: GCS 15, ambulatory with steady gait Course Vital Signs Vital signs: Vital Signs Temperature 37.3 C 02/06/22 15:45 Pulse 100 H 02/06/22 15:45 Respiratory Rate 18 02/06/22 15:45 Blood Pressure 123/86 02/06/22 15:45 Pulse Oximetry 95 02/06/22 15:45 Temperature 37.3 C 02/06/22 15:45 Temperature Source Temporal Artery Scan 02/06/22 15:45 Pulse 100 H 02/06/22 15:45 Respiratory Rate 18 02/06/22 15:45 Blood Pressure 123/86 02/06/22 15:45 Blood Pressure Position Sitting 02/06/22 15:45 Pulse Oximetry 95 02/06/22 15:45 Oxygen Delivery Method Room Air 02/06/22 15:45 Oxygen Flow Rate 0 02/06/22 15:45 Pain Level 5 02/06/22 15:45 Procedures Laceration Laceration 1: Site: face Side (If applicable): left Size (cm): 2.5 Description: linear Depth: simple, single layer Local Anesthetic: Lidocaine 1% and with Epi Amount of anesthesia used (mL): 5 Pre-repair: wound explored Technique: simple, interrupted Number of sutures: 6
[2022-02-06] MEDS: Cephalexin 500 MG CAP, 4 CAPS/BTL PO (17:33)
== END 2022-02-06 17:44 | disposition home or self-care (01) ==
PROVIDERS: Emergency Provider Physician Assistant; PCP Family Medicine
DX: S01.112A Laceration without foreign body of left eyelid and periocular area, initial encounter (principal); F90.9 Attention-deficit hyperactivity disorder, unspecified type; Z79.82 Long term (current) use of aspirin; W19.XXXA Unspecified fall, initial encounter
CPT/HCPCS: 12011; 99284; 70450; 70486

== ENCOUNTER 2022-02-13 10:17 | Emergency (ER) | payer MEDICAID, SELFPAY ==
[2022-02-13 10:26] VITALS: BP 124/66; PULSE 83; RESP 14; TEMP 37.4; O2SAT 97
[2022-02-13 11:38] VITALS: BP 120/64; PULSE 80; RESP 14; O2SAT 97
--- NOTE | 2022-02-20 17:26 | ED.GENADUL_ITS ---
Discharge Plan Disposition Patient Disposition: Home Condition: Stable Discharge Details Clinical Impression: Laceration of face Primary Care Provider: Roselyn Ayala ED Provider: Mitzi Duran Home Meds and New Rx's Prescriptions: Continued olanzapine 15 mg tablet 15 mg PO QHS Label Comments: 03/13/21-Pt rpeorts 15 mg, pharmacy ([place]) reports rx recently changed to 10 mg po daily divalproex 500 mg tablet,delayed release (DR/EC) 1,000 mg PO HS Label Comments: 03/13/21- pharmacy ([place]) confirms dose aspirin [Adult Aspirin Regimen] 81 mg tablet,delayed release (DR/EC) 81 mg PO BID Label Comments: 03/13/21 pharmacy ([place]) states rx is for 81 mg po daily. Pt states he takes BID. methylphenidate HCl [Ritalin] 5 mg tablet 5 mg PO DAILY Label Comments: 03/13/21- pt reports 5 mg daily, pharmacy ([place]) states rx is for 5 mg po BID. Discharge Instructions Instructions: Facial Laceration (ED) Additional Instructions: keep wound clean and dry the swelling should resolve in the next several weeks return earlier should you have new or worsening complaints Referrals: Roselyn Ayala MD [Primary Care Provider] - Discharge Data Discharge Date/Time-TO BE ENTERED AT DEPARTURE: 02/13/22 11:03 Medical Decision Making Patient appears well, no wound dehiscence or evidence of secondary infection Sutures removed by triage nurse and patient discharged home in stable condition with stable vitals Medical Records Medical records reviewed: Yes I reviewed the patient's medical records. Sign Out No HPI General Date/Time Provider Initiated Documentation: 02/13/22 10:32 . HPI Narrative: This 32-year-old male presents for suture removal from left eyebrow. Denies any complaints. Sutures were placed approximately 7 days ago. Denies any vision change or headaches. States hematoma is resolving. Denies fever or pain to the affected area. Denies pain with extraocular movement. Related Data Home Medications Medication Instructions Recorded Confirmed aspirin 81 mg tablet,delayed 81 mg PO BID 03/13/21 02/13/22 release (Adult Aspirin Regimen) divalproex 500 mg tablet,delayed 1,000 mg PO HS 03/13/21 02/13/22 release methylphenidate HCl 5 mg tablet 5 mg PO DAILY 03/13/21 02/13/22 (Ritalin) olanzapine 15 mg tablet 15 mg PO QHS 03/13/21 02/13/22 Allergies Allergy/AdvReac Type Severity Reaction Status Date / Time No Known Allergies Allergy Verified 02/13/22 11:36 General Stated Complaint: SutureRem NATHANAEL: 5 Review of Systems All systems reviewed & are unremarkable except as noted in HPI and below PFSH All Active Problems (Updated 02/13/22 @ 10:33 by OUMOU Herman) Head injury (Acute) Periorbital ecchymosis of left eye (Acute) Laceration of face (Acute) Conductive hearing loss in right ear (Acute) Traumatic arthritis of left ankle (Acute) Chronic pain due to injury (Acute) Carotid pseudoaneurysm (Acute) Aortic dissection (Acute) Cognitive and neurobehavioral dysfunction following brain injury (Acute) Adjustment disorder (Chronic) Anxiety (Chronic) Chronic headache (Acute) S/P exploratory laparotomy (Chronic) Bupropion overdose (Acute) Alcohol intoxication (Acute) Medical History ADHD Asplenia Bipolar affect, depressed Delusional disorder GERD (gastroesophageal reflux disease) Hx of suicide attempt Hx of traumatic brain injury Polysubstance abuse Recurrent spontaneous pneumothorax Vitamin D deficiency Surgical History S/P aortic dissection repair S/P percutaneous endoscopic gastrostomy (PEG) tube placement S/P tracheoplasty Status post tracheostomy Social History Smoking/Tobacco Use Status: Current every day Tobacco Type: e-cigarettes Smoking risk assessment performed?: Yes Alcohol Intake: never Drug use: Daily Substance use type: marijuana and inhalants Household members: family Number of Children: 0 current occupation: Unemployed Pets and animals: Yes Pets and animals: dog(s) Do you feel safe at home: Yes Do you feel safe in your relationship?: Yes Exam Const General: cooperative and comfortable Orientation: alert and oriented x3 [facility] Head images: 1. laceration with sutures in place Resp Effort & Inspection: normal respiratory effort Auscultation: clear to auscultation bilaterally Course Vital Signs Vital signs: Vital Signs Temperature 37.4 C 02/13/22 10:26 Pulse 83 02/13/22 10:26 Respiratory Rate 14 11/22/22 10:26 Blood Pressure 124/66 02/13/22 10:26 Pulse Oximetry 97 02/13/22 10:26 Temperature 37.4 C 02/13/22 10:26 Temperature Source Temporal Artery Scan 02/13/22 10:26 Pulse 80 02/13/22 11:38 Respiratory Rate 14 02/13/22 11:38 Respiratory Effort 02/13/22 11:36 Blood Pressure 120/64 02/13/22 11:38 Blood Pressure Position Sitting 02/13/22 10:26 Pulse Oximetry 97 02/13/22 11:38 Oxygen Delivery Method Room Air 02/13/22 10:26 Oxygen Flow Rate 0 02/13/22 10:26
== END 2022-02-13 11:03 | disposition home or self-care (01) ==
PROVIDERS: Emergency Provider Physician Assistant; PCP Family Medicine
DX: S01.112D Laceration without foreign body of left eyelid and periocular area, subsequent encounter (principal); X58.XXXD Exposure to other specified factors, subsequent encounter; Z48.02 Encounter for removal of sutures

== ENCOUNTER 2022-03-27 16:25 | Emergency (ER) | payer MEDICAID, SELFPAY ==
[2022-03-27 16:29] VITALS: BP 116/66; PULSE 87; RESP 16; TEMP 36.7; O2SAT 96
--- NOTE | 2022-03-27 16:41 | W.ED.GENAD ---
Discharge Plan Disposition Patient Disposition: Home Condition: Stable Discharge Details Clinical Impression: Huffing, Anxiety and depression Primary Care Provider: Roselyn Ayala ED Provider: Ricardo Horn Home Meds and New Rx's Prescriptions: Continued olanzapine 15 mg tablet 15 mg PO QHS Label Comments: 03/13/21-Pt rpeorts 15 mg, pharmacy ([facility]) reports rx recently changed to 10 mg po daily divalproex 500 mg tablet,delayed release (DR/EC) 1,000 mg PO HS Label Comments: 03/13/21- pharmacy ([facility]) confirms dose aspirin [Adult Aspirin Regimen] 81 mg tablet,delayed release (DR/EC) 81 mg PO DAILY Label Comments: 03/13/21 pharmacy ([facility]) states rx is for 81 mg po daily. Pt states he takes BID. bupropion HCl [Wellbutrin SR] 200 mg tablet sustained-release 12 hr 100 mg PO DAILY Discharge Instructions Instructions: Depression (ED), Anxiety (ED) Additional Instructions: Please follow the instructions given to you by both the tissue recovery technician and the mental health team. Please contact both the mental health team and your primary care provider tomorrow to discuss your ER visit and need for outpatient reevaluation. Lastly, please watch for new or worsening symptoms and return to the ER for any concerns. Discharge Data Discharge Date/Time-TO BE ENTERED AT DEPARTURE: 03/27/22 18:30 Medical Decision Making This is a 32-year-old male presenting to the ER with his mother hoping for placement or additional resources for ongoing huffing of aerosolized cans. He admits to ongoing anxiety depression but denies any SI or HI. Has no acute medical concerns or complaints. Denies recent illness or trauma. Clinically he appears well, nontoxic, hemodynamically stable. At this time I see no indication to obtain laboratory values as I do not believe this would change his disposition. Plan to request both a mental health evaluation for his ongoing anxiety and depression as well as have the tissue recovery technician come speak with the patient and family. The tissue recovery technician was present, gave additional resources, please see their note. Health evaluation completed, patient does not meet involuntary status, is not seeking voluntary mental health placement. Can be discharged from their perspective. After speaking with both the mental health team and the tissue recovery technician, patient and mother are comfortable discharge and have no additional questions or concerns. Standard discharge and return precautions were provided. Patient understands, is agreeable to this plan, and has no additional questions or concerns upon discharge. This documentation was generated using [employer] dictation system, please disregard any oddities of phrase or misspellings. Medical Records Medical records reviewed: Yes I reviewed the patient's medical records. HPI General Mode of arrival: ambulatory. Date/Time Provider Initiated Documentation: 03/27/22 16:26. Limitations to Documentation: no limitations. Information obtained by: patient and family. HPI Narrative: This is a 32-year-old male who reports a past history of anxiety, depression, carotid pseudoaneurysm, cognitive and neurobehavioral dysfunction following brain injury, history of alcohol abuse 2 years ago, history of suicide attempt, presents today with his mother requesting detox after he began huffing from a dust cleaning bottle worsening over the past few months. He reports chronic anxiety and depression but denies any worsening of either, SI or HI. He does report a small chemical burn on his left hand from huffing otherwise has no acute medical concerns or complaints. Denies recent illness or trauma. Patient attempted to get himself admitted to [facility] but this was unsuccessful, then talked with [facility] human services and they recommended coming to the ER to see if we could help with the placement or potential other resources. Related Data Home Medications Medication Instructions Recorded Confirmed divalproex 500 mg tablet,delayed 1,000 mg PO HS 03/13/21 03/27/22 release olanzapine 15 mg tablet 15 mg PO QHS 03/13/21 03/27/22 aspirin 81 mg tablet,delayed 81 mg PO DAILY 03/05/22 03/27/22 release (Adult Aspirin Regimen) bupropion HCl 200 mg tablet,12 hr 100 mg PO DAILY 03/05/22 03/27/22 sustained-release (Wellbutrin SR) Allergies Allergy/AdvReac Type Severity Reaction Status Date / Time No Known Allergies Allergy Verified 03/27/22 16:34 General Stated Complaint: DrugWithdr/MAT NATHANAEL: 4 Review of Systems Constitutional Constitutional: Denies fatigue, Denies fever(s), Denies headache(s) and Denies weakness Eyes Eyes: Denies change in vision ENT Ears, Nose, Mouth, and Throat: Denies headache(s) Cardiovascular Cardiovascular: Denies chest pain and Denies dyspnea Respiratory Respiratory: Denies dyspnea Gastrointestinal Gastrointestinal: Denies abdominal pain, Denies nausea and Denies vomiting Musculoskeletal Musculoskeletal: Reports back pain (Chronic) Integumentary/Breasts Skin/Breast: Denies rash Neurologic Neurologic: Denies headache(s) and Denies weakness Psychiatric Psychiatric: Reports anxiety, Reports depression, Denies homicidal ideation and Denies suicidal ideation Endocrine Endocrine: Denies fatigue PFSH All Active Problems Huffing (Acute) Anxiety and depression (Chronic) Conductive hearing loss in right ear (Acute) Traumatic arthritis of left ankle (Acute) Chronic pain due to injury (Acute) Carotid pseudoaneurysm (Acute) Aortic dissection (Acute) Cognitive and neurobehavioral dysfunction following brain injury (Acute) Adjustment disorder (Chronic) Anxiety (Chronic) Chronic headache (Acute) S/P exploratory laparotomy (Chronic) Bupropion overdose (Acute) Alcohol intoxication (Acute) Medical History ADHD Asplenia Bipolar affect, depressed Delusional disorder GERD (gastroesophageal reflux disease) Hx of suicide attempt Hx of traumatic brain injury Polysubstance abuse Recurrent spontaneous pneumothorax Vitamin D deficiency Surgical History S/P aortic dissection repair S/P percutaneous endoscopic gastrostomy (PEG) tube placement S/P tracheoplasty Status post tracheostomy Social History Smoking/Tobacco Use Status: Current every day Tobacco Type: cigarettes Smoking risk assessment performed?: Yes Alcohol Intake: never Drug use: Current Sobriety Substance use type: marijuana and inhalants Details: last used about 1 week ago. Household members: family Number of Children: 0 current occupation: Unemployed Pets and animals: Yes Pets and animals: dog(s) Do you feel safe at home: Yes Do you feel safe in your relationship?: Yes Additional Social history: mother at bedside. patient states he does not feel safe when he is alone. Exam Const General: cooperative, healthy appearing, comfortable and no acute distress Orientation: alert, awake and oriented x3 HENMT Head: atraumatic Mouth: moist mucous membranes Eyes General: appearance normal, both eyes and all related structures Conjunctivae: conjunctivae normal Neck Neck: normal visual inspection, full ROM, no meningeal signs, trachea midline and supple Resp Effort & Inspection: normal respiratory effort and able to speak in complete sentences Auscultation: clear to auscultation bilaterally Cardio Rate: regular rate Rhythm: regular rhythm GI Palpation: soft and nontender Skin Rashes: no rashes Neuro General: patient alert, patient awake, patient oriented x3, moves all extremities and no focal motor deficits Cognition: normal cognition Speech: speech normal Gait: normal gait Motor: muscle tone normal throughout Sensory Exam: no sensory deficits noted Extrem General: full ROM and capillary refill normal Hand/finger images: 1. None circumferential erythema, centrally there is an intact blister. Appears to be both a first and second-degree burn. Neuro, vascular, tendon intact. No evidence of secondary infection. Normal radial pulse and capillary refill. Psych Appearance: grossly normal Mental Status: mental status grossly normal Course Vital Signs Vital signs: Vital Signs Temperature 36.7 C 03/27/22 16:29 Pulse 87 03/27/22 16:29 Respiratory Rate 16 03/27/22 16:29 Blood Pressure 116/66 03/27/22 16:29 Pulse Oximetry 96 03/27/22 16:29 Temperature 36.7 C 03/27/22 16:29 Temperature Source Skin 03/27/22 16:29 Pulse 87 03/27/22 16:29 Respiratory Rate 16 03/27/22 16:29 Respiratory Effort Non-Labored 03/27/22 16:36 Blood Pressure 116/66 03/27/22 16:29 Blood Pressure Position Sitting 03/27/22 16:29 Pulse Oximetry 96 03/27/22 16:29 Oxygen Delivery Method Room Air 03/27/22 16:29 Oxygen Flow Rate 0 03/27/22 16:29
[2022-03-27 18:31] VITALS: BP 102/61; PULSE 69; RESP 16; TEMP 36.8; O2SAT 98
== END 2022-03-27 18:30 | disposition home or self-care (01) ==
PROVIDERS: Emergency Provider Physician Assistant; PCP Family Medicine
DX: F18.10 Inhalant abuse, uncomplicated (principal); F41.8 Other specified anxiety disorders
CPT/HCPCS: 99283; 99284

== ENCOUNTER 2022-05-18 02:39 | Outpatient (CLI) | payer MEDICAID, SELFPAY ==
--- NOTE | 2022-05-26 19:54 | PDOC.EEG_ITS ---
Neurology EEG EEG: [facility] Department of Neurology LONG-TERM AMBULATORY EEG REPORT Date of Recordin05/18/22 at 15:46:47 to 05/19/22 at 16:10:20 Interpreting Physician: Dr. Era Kay PCP/Referring Provider: Dr. Roselyn Ayala Reason for study: Mr. Dexter is a 32 year-old with history of severe TBI and ?seizure disorder. Current Medications: Home Medications Medication Instructions Recorded Confirmed Type divalproex 500 mg tablet,delayed 1,000 mg PO HS 03/13/21 05/07/22 History release olanzapine 15 mg tablet 15 mg PO QHS 03/13/21 05/07/22 History aspirin 81 mg tablet,delayed 81 mg PO DAILY 03/05/22 05/07/22 History release (Adult Aspirin Regimen) bupropion HCl 200 mg tablet,12 hr 100 mg PO DAILY 03/05/22 05/07/22 History sustained-release (Wellbutrin SR) METHODS: An 18-channel digitized electroencephalogram was recorded in the ambulatory setting with video. The 10/20 international system of electrode placement was used and bipolar and referential electrode montages were recorded. In addition to EEG the patient was monitored for EKG and by video. Activation procedures of photic stimulation and hyperventilation were performed if applicable. The duration of the recording was 24 hours. DESCRIPTION OF EEG: Waking background activity: During maximal wakefulness a 9-Hz posterior background rhythm was present which was well-modulated, symmetrical, reactive to eye opening, and of moderate voltage. Faster frequencies were present in the bilateral anterior head regions. There was a normal anterior-posterior voltage gradient. Drowsy and sleeping background activity: During drowsiness, there was attenuation of the posterior dominant background rhythm and vertex waves. Normal stage II and III sleep was present with symmetrical sleep spindles, K- complexes, and vertex waves with slowing of the background rhythm to delta/theta frequencies. REM sleep manifested by rapid lateral eye movements and faster background rhythms was recorded. Arousal was unremarkable. Interictal abnormalities: none. Ictal findings: No events recorded. Activating Procedures: Photic stimulation was performed which produced a posterior driving response at various flash frequencies in the right hemisphere only. Hyperventilation was performed with moderate effort and produced no physiological slowing of the background. EKG: EKG revealed normal sinus rhythm. INTERPRETATION: This long-term EEG is abnormal due to an asymmetric photic driving response with absent driving in the left hemisphere. PRIOR EEG: none CLINICAL CORRELATION: The finding above could represent an area of focal cerebral dysfunction involving the left hemisphere. No definite epileptiform activity was present. Epilepsy remains a clinical diagnosis and a normal EEG does not rule out epilepsy. Clinical correlation is advised. Era Kay MD
== END 2022-05-18 02:40 | disposition home or self-care (01) ==
LOC: RT 02:40
PROVIDERS: PCP Family Medicine; Visit Provider Psychiatry & Neurology Neurology
DX: R41.840 Attention and concentration deficit (principal); Z87.820 Personal history of traumatic brain injury
CPT/HCPCS: 95714

== ENCOUNTER 2022-05-18 15:23 | Outpatient (REF) | payer MEDICAID, SELFPAY ==
[2022-05-18 16:05] LABS: *AMPHETAMINES SCREEN URINE Negative (Negative); *BARBITURATES SCREEN URINE Negative (Negative); *BENZODIAZEPINES SCREEN URINE Negative (Negative); Cannabinoids THC Positive (Negative); Cocaine Screen,Urine Negative (Negative); METHADONE URINE SCREEN Negative (Negative); OPIATES URINE SCREEN Negative (Negative)
[2022-05-18 16:06] LABS: Tricyclic Antidepressants Negative (Negative)
== END 2022-05-18 15:24 | disposition home or self-care (01) ==
LOC: LBN 15:23
PROVIDERS: PCP Family Medicine; Visit Provider Psychiatry & Neurology Psychiatry
DX: F32.1 Major depressive disorder, single episode, moderate (principal)
CPT/HCPCS: 80307

== ENCOUNTER 2023-01-23 17:12 | Emergency (ER) | payer MEDICAID, SELFPAY ==
[2023-01-23] VITALS (32 sets, daily range): BP systolic 110–157; BP diastolic 61–74; PULSE 60–111; RESP 10–26; TEMP 36.8; O2SAT 98
--- NOTE | 2023-01-23 17:15 | RT.EKG_ITS ---
APPROVED REPORT Exam: Resting ECG Reason for Exam: chest pain Patient Location: E HR:85 bpm ECG Measurements Heart Rate 85 AXIS NC 163 P 77 QRSd 79 QRS 83 QT 345 T 57 QTc 410 Conclusion Sinus rhythm...normal P axis, V-rate 60- 99 Probable anterolateral infarct, old...Q>35mS, abnrm ST-T, V2-V6,I,aVL NSR @ [address] depression, lateral leads, nonspecific No STEMI
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
--- NOTE | 2023-01-23 17:30 | DI.CT_ITS ---
Exam(s) CT THORAX ABD/PEL CTA EXAM: CT THORAX ABD/PEL CTA CLINICAL HISTORY: hx aortic dissection; tearing CP. TECHNIQUE: Imaging Protocol: Axial CT angiography was performed with multi-slice acquisition and m ulti-planar and/or 3D reconstructions. CONTRAST MATERIAL: Intravenous: Omnipaque 350 contrast volume:125 mL Oral: No COMPARISON: No exams were available for comparison FINDINGS: CHEST: Tracheobronchial tree: Patent where visualized. Pulmonary parenchyma: Small scattered ground-glass opacities are present in the lungs. There is an i rregular 1.2 cm density in the posterolateral aspect of the right upper lobe. Pulmonary Arteries: No evidence of filling defect to suggest pulmonary emboli. Mediastinum and Lawanda: No dominant adenopathy or fluid collection. The esophagus is unremarkable. Visualized thyroid: Unremarkable. Pleura: No effusion or pneumothorax. Heart: The heart is not dilated. No coronary artery calcifications are seen. No pericardial effusion. Aorta: Thoracic aorta non-dilated. There is an endovascular stent seen in the aortic arch. There is a common carotid to left subclavian artery bypass. There is no evidence of a dissection. Soft Tissues: Unremarkable. Bones: Within normal limits for the patient's age.There is an old healed right clavicular fracture de formity. ABDOMEN AND PELVIS: Abdomen: Celiac axis/mesenteric arteries: No evidence of occlusion or significant stenosis. Renal Arteries: No evidence of occlusion or significant stenosis. There is a single renal artery per fusing each kidney. Aorta: No evidence of occlusion or significant stenosis. No aneurysm or dissection. Pelvis: Iliac Arteries: No evidence of occlusion or significant stenosis. Common Femoral Arteries: No evidence of occlusion or significant stenosis. ABDOMEN: Liver: Normal density. There is a tiny hypodensity in the posterior segment of the right lobe of the liver. This likely reflects a cyst. It is too small for further characterization. Gallbladder and Biliary Tract: No radiodense calculus or dilation. Pancreas: Normal density, no abnormal calcifications or inflammatory process. Spleen: The spleen is absent. Adrenals: No masses seen. Kidneys: Normal size, contour and axis. No radiodense stones or obstructive uropathy. There are few t iny hypodensities in the right kidney. They are too small for further characterization but likely re flect cysts. No follow-up is recommended. Bowel: No obstruction or bowel wall thickening. Appendix is unremarkable. Peritoneal Cavity: No ascites, collection or mesenteric inflammatory response. No free air. Lymph Nodes: Within normal limits. Bones: Within normal limits for the patient's age. Soft Tissues: Unremarkable. PELVIS: Bladder: Symmetric distention, no gross wall thickening. Reproductive Organs: Unremarkable as visualized. Lymph Nodes: Within normal limits. Bones: Within normal limits for the patient's age. IMPRESSION: 1. No evidence of dissection. 2. Findings of a endovascular stent in the thoracic aortic arch and a bypass from the left common car otid artery to the left subclavian artery. 3. Nonspecific ground-glass opacities in the lungs. 4. 1.2 cm irregular density in the right upper lobe. Scarring versus mass. A follow-up CT scan of t he chest in 1-3 months is recommended for re-evaluation. If there are prior films for comparison the y may be submitted and an addendum will be issued at that time. 5. No acute abdominal or pelvic process. 6. Findings were discussed with Alcides Jerome at 6:28 p.m. on 01/23/2023. RADIATION DOSE DELIVERED: Total DLP DATA REPOSITORY: All CT scans at this facility are submitted to the National Radiology Data Registry (NRDR) Dose Index Registry (DIR) with the [employer] ([employer]). RADIATION OPTIMIZATION: All CT scans at this facility use at least one of these dose optimization te chniques: automated exposure control; mA and/or kV adjustment per patient size (includes targeted exa ms where dose is matched to clinical indication); or iterative reconstruction.
[2023-01-23] MEDS: Normal Saline Flush 10 ML SYR IVP (17:46)
[2023-01-23 18:08] LABS: ALT 18 U/L (16-63); AST 17 U/L (15-37); Albumin 4.5 g/dL (3.4-5.0); Alkaline Phosphatase 83 U/L (46-116); Anion Gap 10.1 mmol/L (3-11); BUN 9 mg/dL (7-18); Bilirubin, Total 0.8 mg/dL (0.2-1.0); CO2 26.9 mmol/L (21.0-32.0); CREATININE 0.9 mg/dL (0.70-1.30); Calcium 10.2 mg/dL (8.5-10.1); Chloride 102 mmol/L (98-107); Estimated GFR 114.93 (mL/min/1.73m2); Glucose 103 mg/dL (74-106); Lipase 22 U/L (16-77); Potassium 3.9 mmol/L (3.5-5.1); Sodium 139 mmol/L (136-145); Total Protein 8.2 g/dL (6.4-8.2); Troponin I < 50 ng/L (<or=60)
[2023-01-23] MEDS: Omnipaque 350 MG/ML 500 ML BTL-Imaging package 125 ML IJ (18:08)
[2023-01-23 18:14] LABS: NT-proBNP 71 pg/mL (<300)
[2023-01-23] MEDS: Ketorolac 10 MG TAB PO (18:38)
[2023-01-23] MEDS: Acetaminophen 500 MG TAB 1000 MG PO (18:38)
[2023-01-23 18:45] LABS: Abs Immature Grans 0.06 10^3/uL (0.0-0.06); Absolute Basophil Count 0.16 10^3/uL (0.0-0.2); Absolute Eosinophil Count 0.27 10^3/uL (0.0-0.7); Absolute Lymphocyte Count 4.38 10^3/uL (1.2-3.4); Absolute Monocyte Count 1.15 10^3/uL (0.1-0.8); Absolute Neutrophil Count 6.45 10^3/uL (1.2-6.7); Basophils % 1.3; Eosinophils % 2.2; HGB 16.2 g/dL (13.5-17.5); Immature Grans % 0.5; Lymphocytes % 35.1; MCH 32.5 pg (27.0-33.0); MCHC 34.5 % (32.0-36.0); MCV 94 fL (80-95); MPV 11.8 fL (8.0-11.0); Monocytes % 9.2; Neutrophils % 51.7; Platelet Count 367 10^3/uL (130-400); RBC 4.99 10^6/uL (4.36-5.78); RDW 13.7 % (11.8-14.1); RDW-SD 47.6 fL; WBC 12.48 10^3/uL (4.4-10.8)
[2023-01-23 20:08] LABS: Troponin I < 50 ng/L (<or=60)
[2023-01-23 21:41] LABS: Troponin I < 50 ng/L (<or=60)
== END 2023-01-23 22:20 | disposition home or self-care (01) ==
PROVIDERS: Emergency Provider Physician Assistant; PCP Family Medicine
DX: R07.9 Chest pain, unspecified (principal); Z98.890 Other specified postprocedural states; R91.8 Other nonspecific abnormal finding of lung field; Z87.828 Personal history of other (healed) physical injury and trauma
CPT/HCPCS: 71275; 80053; 83690; 93005; 99285; 74174; 83880; 84484; 85025; 93010

== ENCOUNTER → 2023-02-08 01:41 | Outpatient (CLI) | payer MEDICAID, SELFPAY ==
--- NOTE | 2023-02-08 | DI.CT_ITS ---
Exam(s) CT CHEST WO EXAM: CT CHEST WO CLINICAL HISTORY: F/U [facility] CT SCAN,R91.8,IRREGULAR DENSITY RUL,S/P ANTIBIOTICS. TECHNIQUE: Multi planar reconstructions were performed. CONTRAST MATERIAL: None COMPARISON: CT CT THORAX ABD/PEL CTA from 01/23/2023 FINDINGS: CHEST: LUNGS: Previously described right upper lobe infiltrate comprised of ground-glass and slightly denser center is again noted and is unchanged from 01/23/2023. In addition, a 2nd ground-glass infiltrate in the posterior aspect of the right upper lobe adjacent to the superior aspect of the major fissure is also again noted and unchanged. This measures 2 by 1.3 cm. These are stable and there are no add itional focal findings in the right lung nor pleural effusion. In the opposite-left lung very faint ground-glass infiltrate is again noted. Also unchanged is an ar ea of ground-glass infiltrate in the uppermost aspect of the superior segment of the left lower lobe. There is some tree in bud infiltrate also evident in the lateral aspect of the superior segment of the left lower lobe, also unchanged. There are no new left lung findings. Some scarring is again no tino in the anterior segment of the left upper lobe, unchanged. There are no pleural effusions on eit her side. No new focal findings nor secretions evident in the trachea and mainstem bronchi. There i s no bronchiectasis. There again no findings in the basal segments of both lower lobes nor in the ri ght middle lobe nor in the lingular segment of the left lung. MEDIASTINUM: Small lymph nodes in both hilar regions again noted as are few slightly enlarged lymph n odes in the subcarinal region and anterior triangle anterior mediastinal fat, unchanged. No axillary adenopathy nor supraclavicular adenopathy. Visualized thyroid unremarkable. CARDIAC: Heart size is normal. There is no pericardial effusion.Diameter of the ascending thoracic a chris remains normal. There is a stent graft in the distal aortic arch and proximal descending thorac ic aorta again noted which starts just distal to the takeoff point of the left common carotid artery. There is a cortex type graft again noted extending from the left common carotid artery just below t he thyroid level as a bypass graft to the left subclavian artery. Patency not able to be assessed be cause this is a noninfused study VISUALIZED UPPER ABDOMEN:No adrenal masses. 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 OSSEOUS: No fractures. No significant osseous lesions. IMPRESSION: 1. Compared to the prior CT scan of 01/23/2023 there has been no change in the bilateral multiple sandy und-glass infiltrates in both upper lobes and superior segment of the lower lobes. No regression and no new ground-glass infiltrates. There is again noted sparing of the basal segments of both lower l obes as well as sparing of the right middle lobe and lingular segment of the left lung. There are no pleural effusions. 2. Spleen is again noted to be absent. 3. Vascular findings as above again noted. RADIATION DOSE DELIVERED: Total DLP DATA REPOSITORY: All CT scans at this facility are submitted to the National Radiology Data Registry (NRDR) Dose Index Registry (DIR) with the [employer] (ACR). RADIATION OPTIMIZATION: All CT scans at this facility use at least one of these dose optimization te chniques: automated exposure control; mA and/or kV adjustment per patient size (includes targeted exa ms where dose is matched to clinical indication); or iterative reconstruction.
== END ==
PROVIDERS: PCP Family Medicine; Visit Provider Family Medicine
DX: R91.8 Other nonspecific abnormal finding of lung field (principal); Z90.81 Acquired absence of spleen
CPT/HCPCS: 71250

== ENCOUNTER 2023-05-06 13:09 | Outpatient (CLI) | payer MEDICAID, SELFPAY ==
--- NOTE | 2023-05-06 13:00 | RT.EKG_ITS ---
APPROVED REPORT Exam: Resting ECG Reason for Exam: annual Patient Location: O HR:125 bpm ECG Measurements Heart Rate 125 AXIS RI 165 P 80 QRSd 78 QRS 87 QT 302 T 41 QTc 436 Conclusion Sinus tachycardia...rate> 99 right atrial enlargement...P >0.24mV limb lead Poor R wave progression
== END 2023-05-06 13:10 | disposition home or self-care (01) ==
PROVIDERS: PCP Family Medicine; Visit Provider Physician Assistant Surgical
DX: D86.9 Sarcoidosis, unspecified (principal)
CPT/HCPCS: 93005; 93010

== ENCOUNTER 2023-06-04 15:59 | Outpatient (REF) | payer MEDICAID, SELFPAY ==
[2023-06-04 15:59] LABS: Anion Gap 15.1 mmol/L (3-11); BUN 9 mg/dL (7-18); CO2 22.9 mmol/L (21.0-32.0); Calcium 9.9 mg/dL (8.5-10.1); Chloride 104 mmol/L (98-107); Estimated GFR 101.28 (mL/min/1.73m2); Glucose 111 mg/dL (74-106); Potassium 4.5 mmol/L (3.5-5.1); Sodium 142 mmol/L (136-145)
[2023-06-04 16:33] LABS: Hemoglobin A1C 4.7 % (<5.7)
== END 2023-06-04 16:00 | disposition home or self-care (01) ==
LOC: NCHCN 15:59
PROVIDERS: PCP Family Medicine; Visit Provider Family Medicine
DX: G31.89 Other specified degenerative diseases of nervous system (principal); F32.1 Major depressive disorder, single episode, moderate; Z87.820 Personal history of traumatic brain injury; Z79.899 Other long term (current) drug therapy; R73.09 Other abnormal glucose
CPT/HCPCS: 80048; 83036

== ENCOUNTER 2023-07-22 05:53 | Outpatient (CLI) | payer MEDICAID, SELFPAY ==
[2023-07-22] MEDS: Levalbuterol HFA 15 GM INH 4 PUFF IH (14:41)
[2023-07-22] MEDS: Inhaler, Assist Device 1 EACH MC (14:41)
--- NOTE | 2023-07-23 11:00 | W.PFT ---
Date of service: 07/22/23 Time of Service: 13:05 Pulmonary Function Test Result Indications: Sarcoidosis Interpretation Spirometry: There is no airflow limitation. No bronchodilator response. Lung Volumes: There is hyperinflation. Diffusion Capacity: Normal diffusion. Airway Pressure: Normal airways resistance Impression Normal pulmonary function testing aside from hyperinflation being present. Clinical Correlation therefore is recommended.
== END 2023-07-22 05:54 | disposition home or self-care (01) ==
LOC: RT 05:53
PROVIDERS: PCP Family Medicine; Visit Provider Student in an Organized Health Care Education/Training Program
DX: D86.9 Sarcoidosis, unspecified (principal)
CPT/HCPCS: 94060; 94726; 94729

== ENCOUNTER 2024-06-22 12:52 | Outpatient (CLI) | payer MEDICAID, SELFPAY ==
--- NOTE | 2024-06-22 12:45 | DI.CT_ITS ---
Exam(s) CT CHEST W EXAM: CT CHEST W CLINICAL HISTORY: f/U SARCOIDOSIS,D86.9. TECHNIQUE: Multi planar reconstructions were performed. CONTRAST MATERIAL: Omnipaque 350; 70 cc COMPARISON: CT CT CHEST WO from 02/08/2023 FINDINGS: CHEST: LUNGS: The previously described right upper lobe area of infiltrate is again noted and exhibits minim al if any significant change from previous. There is a ground-glass type infiltrate in the posterior aspect of the right upper lobe adjacent to the superior aspect of major fissure again noted, unchang ed. There is some adjacent similar appearing infiltrate in the medial aspect of the superior segment of the right lower lobe now evident, more than previous. There is platelike atelectasis in the righ t lower lobe also now evident. No pleural effusion. On the opposite-left side there is again noted an area of ground-glass infiltrate in the superior seg ment of the left lower lobe adjacent to the upper aspect of the major fissure, unchanged. Very mild increased markings are noted above this in the left upper lobe. Some mild scarring in the anterior s egment of the left upper lobe is unchanged. There is some mild increasing ground-glass infiltrate in the left lower lobe behind the major fissure, previously present but slightly increased on today's s tudy. There are no pleural effusions on either side. No new findings in the trachea and mainstem bronchi. MEDIASTINUM: There is mild bilateral hilar adenopathy, more visible than previous because the present study was performed with IV contrast. There is also mild enlarged lymph nodes in the right paratrac heal region and there is adenopathy evident in the subcarinal region. There is no supraclavicular ad enopathy nor axillary adenopathy.Visualized thyroid appears unremarkable. CARDIAC: Heart size is normal. There is no pericardial effusion.The diameter of the ascending thorac ic aorta is normal, measuring 2.4 cm. Again noted is an endovascular stent within the aortic arch an d proximal descending thoracic aorta. The proximal aspect of the stent is just beyond the origin of the left common carotid artery off the arch. This stent goes across the left subclavian artery which appears coiled and there is again noted a [id number] graft which extends from the anterolateral w all of the left common carotid artery to the left subclavian artery and which appears patent and with out intra stent stenosis nor anastomotic abnormalities. There is no evidence of aortic dissection no r penetrating aortic ulcer nor intramural hematoma. VISUALIZED UPPER ABDOMEN:There are no significant adrenal masses. Partially visualized upper kidneys appear unremarkable. Spleen again not seen and probably surgically absent. OSSEOUS: No fractures. No lytic nor blastic osseous lesions in the field of view of this chest study .. IMPRESSION: 1. Compared to the prior noninfused CT scan of 02/08/2023 there are relatively stable areas of infilt rates bilaterally as described above. In addition there is some new mild infiltrate in the medial as pect of the superior segment of the right upper lobe now evident and there is some mild increasing gr ound-glass infiltrate in the left lower lobe. There are no pleural effusions. 2. Bilateral hilar adenopathy and enlarged right paratracheal region lymph node again noted as is sub carinal lymphadenopathy again noted. 3. Endovascular stent graft in the thoracic aortic arch and proximal descending thoracic aorta appear s satisfactory and there is no evidence of dissection within the thoracic aorta and no evidence of an eurysm of the ascending aorta. The left subclavian artery is coiled at its takeoff point from the ar ch and there is a patent cortex-type graft extending from the patent left common carotid artery to th e left subclavian artery distal to the interventional coil material. This graft appears patent with no significant intra stent stenosis nor stenosis distal to the distal anastomosis nor stenosis within the left axillary artery. The spleen is again noted to be absent. RADIATION DOSE DELIVERED: 155.98mGy.cm Total DLP DATA REPOSITORY: All CT scans at this facility are submitted to the National Radiology Data Registry (NRDR) Dose Index Registry (DIR) with the [employer] (ACR). RADIATION OPTIMIZATION: All CT scans at this facility use at least one of these dose optimization te chniques: automated exposure control; mA and/or kV adjustment per patient size (includes targeted exa ms where dose is matched to clinical indication); or iterative reconstruction.
[2024-06-22] MEDS: Levalbuterol HFA 15 GM INH 4 PUFF IH (14:04)
[2024-06-22] MEDS: Inhaler, Assist Device 1 EACH MC (14:04)
[2024-06-22] MEDS: Omnipaque 350 MG/ML 100 ML BTL 70 ML IJ (14:20)
[2024-06-22] MEDS: Normal Saline - Diluent 50 ML VIAL IJ (14:21)
--- NOTE | 2024-06-23 16:15 | W.PFT ---
Date of service: 06/22/24 Time of Service: 13:06 Pulmonary Function Test Result Indications: Sarcoidosis Interpretation Spirometry: There is no airflow limitation. No significant bronchodilator response. Lung Volumes: There is air trapping Diffusion Capacity: Reduced diffusion Airway Pressure: Normal airways resistance Impression Air trapping and a reduced diffusion Clinical Correlation therefore is recommended.
== END 2024-06-22 13:12 ==
LOC: DI 13:02
PROVIDERS: PCP Family Medicine; Visit Provider Physician Assistant Surgical
DX: D86.89 Sarcoidosis of other sites (principal)
CPT/HCPCS: 94060; 94726; 94729; 71260; J3490

== ENCOUNTER 2024-06-22 15:50 | Outpatient (CLI) | payer MEDICAID, SELFPAY | END 2024-06-22 15:51 | disposition home or self-care (01) | LOC: RT 15:54 | PROVIDERS: PCP Family Medicine; Visit Provider Student in an Organized Health Care Education/Training Program | DX: F17.210 Nicotine dependence, cigarettes, uncomplicated (principal); D86.9 Sarcoidosis, unspecified | CPT/HCPCS: 94060; 94726; 94729 ==